=== PATIENT | female | born 1940 | race Caucasian/White ===

== ENCOUNTER 2019-11-30 11:36 | Inpatient (IN) ==
--- NOTE | 2019-11-30 12:00 | Emergency Department Note ---
Neuro HPI - General Chief Complaint: Stroke Symptoms Stated Complaint: stroke symptoms, 90 minutes ago Time Seen by Provider: 11/30/19 11:45 Source: patient, EMS Mode of arrival: EMS Limitations: no limitations - History of Present Illness HPI Narrative: 79-year-old female comes in complaining of trouble speaking starting about 2 hours ago. Perhaps small right-sided facial droop is noted as well. However patient says she is on Eliquis. She is complaining of head Does have a history of prior CVA and cerebral palsy. She has not been able to walk for the last 40 years and is in a electric wheelchair. She has limited sensation and motor ability to her lower extremities at baseline - Related Data Home Medications: Home Medications Medication Instructions Recorded Confirmed albuterol 90 mcg/actuation aerosol See Rx Instructions INHALATION 10/11/16 11/30/19 inhaler .COMPLEX budesonide-formoterol HFA 160 See Rx Instructions INHALATION 10/11/16 11/30/19 mcg-4.5 mcg/actuation aerosol .COMPLEX inhaler felodipine 5 mg tablet,extended 1 tab PO BID 10/11/16 11/30/19 release 24 hr furosemide 20 mg tablet 2 tab PO QAM 10/11/16 11/30/19 hydralazine 100 mg tablet 1 tab PO DAILY 10/11/16 11/30/19 meloxicam 7.5 mg tablet 2 tab PO DAILY 10/11/16 11/30/19 metoprolol tartrate 25 mg tablet 1 tab PO DAILY 10/11/16 11/30/19 omeprazole 20 mg capsule,delayed 1 tab PO BID 10/11/16 11/30/19 release potassium chloride 10 mEq 2 tab PO QAM 10/11/16 11/30/19 tablet,extended release(part/cryst) repaglinide 2 mg tablet See Rx Instructions PO .COMPLEX 10/11/16 11/30/19 Apixaban [Eliquis] 1 tab PO BID 11/30/19 11/30/19 traMADol HCL [Ultram] 50 mg PO Q8 PRN 11/30/19 11/30/19 Allergies/Adverse Reactions: Allergies Allergy/AdvReac Type Severity Reaction Status Date / Time morphine [MORPHINE] Allergy Unknown EMESIS Verified 11/30/19 11:39 Sulfa (Sulfonamide Allergy Unknown HIVES Verified 11/30/19 11:39 Antibiotics) [SULFA (SULFONAMIDE ANTIBIOTICS)] Review of Systems All systems ED: reviewed and negative except as stated. Past Medical History - Past Medical History Attestation: Yes: The following information was validated with the patient. [facility] Narrative: Family History (Last Reviewed 10/30/19 @ 11:02 by Cat Otto CMA) Father Cancer Medical History (Last Reviewed 10/30/19 @ 11:42 by Marcia Maier DO) Mastoiditis (Acute) Long-term current use of steroids (Chronic) Mastoiditis of right side (Suspected) Giant cell arteritis (Ruled-out) Polyarthralgia (Chronic) Vision loss of left eye (Chronic) Rheumatology New Pt. (Acute) Ischemic optic neuropathy (Chronic) Drusen (degenerative) of retina (Chronic) Sector or arcuate defects in visual field (Chronic) Senile nuclear sclerosis (Chronic) Blepharoconjunctivitis, unspecified (Chronic) Subjective visual disturbance, unspecified (Chronic) Carpal tunnel syndrome of left wrist (Chronic) Cerebral palsy (Chronic) Migraine (Chronic) GERD (gastroesophageal reflux disease) (Chronic) Diabetes mellitus, type II (Chronic) Hypertension (Chronic) COPD (chronic obstructive pulmonary disease) (Chronic) Asthma (Chronic) Osteoarthritis (Chronic) Presbyopia (Chronic 10/02/16) Blurry vision (Chronic) Visual field loss (Chronic) Retinal detachment (Chronic) Past Surgical History (Last Reviewed 10/30/19 @ 11:02 by Cat Otto [facility]) History of (Chronic) History of back surgery (Chronic) History of carpal tunnel surgery of left wrist (Chronic) History of tonsillectomy (Chronic) Medical history: Reports: atrial fibrillation, CVA, DM, hypertension, other [employer] history: Reports: non-contributory Surgical history ED: Reports: other (multiple surgeries for cerebral palsy) - Social History smoking status: Never smoker Physical Exam Elderly female is conversant but is having a little trouble word finding. Alert and oriented -short-term memory does appear intact and with time is able to communicate effectively. Perhaps small amount of right facial droop. There is no dysarthria. Conjunctive are clear sclerae white and icteric. Pupils are eq ual round reactive to light and accommodation. Extraocular movements are intact without significant nystagmus. No nasal discharge or congestion. Oropharynx is pink and moist. Tongue is midline. Neck is supple without lymphadenopathy thyromegaly or carotid bruit. Heart is regular rate and rhythm no murmur appreciated. Lungs are clear to auscultation bilaterally without wheezes rales rhonchi or respiratory distress. Abdomen is soft nontender nondistended. No peritoneal signs or guarding. 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 Bilateral feet show baseline sensation and limited movement at baseline. Limitations: no limitations Course Vital Signs Respiratory Rate 26 H 11/30/19 11:59 Blood Pressure 119/51 11/30/19 11:59 Pulse Rate 28 L 11/30/19 12:02 Respiratory Rate 19 11/30/19 13:14 Blood Pressure 140/47 11/30/19 13:14 Pulse Oximetry (%) 98 11/30/19 12:02 Neuro Symptoms/Deficit - Lab Data Lab results reviewed: Yes I reviewed the patient's lab results. Result diagrams: 11/30/19 11:55 11/30/19 11:55 Lab Results 11/30/19 11/30/19 11/30/19 Range/Units 11:55 11:55 11:55 WBC 10.1 (4.50-11.00) K/mcL RBC 4.28 (3.59-5.38) M/mcL Hgb 12.2 (11.2-15.7) g/dL Hct 36.7 (34.1-44.9) % POC Hct 38.0 (36.0-48.0) % MCV 85.7 (80.0-100.0) fL MCH 28.5 (26.0-34.0) pg MCHC 33.2 (31.0-36.0) g/dL RDW 13.2 (11.5-14.5) % Plt Count 268 (140-440) K/mcL MPV 11.2 H (7.4-10.4) fL Gran % 77.1 (38.0-78.0) % Lymph % (Auto) 15.3 L (15.5-49.0) % Spink % (Auto) 5.6 (1.0-12.0) % Eos % (Auto) 1.3 (0.0-7.0) % Baso % (Auto) 0.7 (0.0-2.0) % Gran # 7.79 (1.80-8.00) K/mcL Lymph # (Auto) 1.55 (1.50-4.80) K/mcL Spink # (Auto) 0.57 (0.10-0.90) K/mcL Eos # (Auto) 0.13 (0.00-0.70) K/mcL Baso # (Auto) 0.07 (0.00-0.30) K/mcL POC PT 12.3 (11.9-14.5) sec POC INR 1.0 (0.9-1.2) APTT 38 H (20-37) sec POC Sodium 135 (133-145) mmol/L Sodium 135 (133-145) mmol/L POC Potassium 4.3 (3.3-5.1) mmol/L Potassium 4.4 (3.3-5.1) mmol/L POC Chloride 102 (96-108) mmol/L Chloride 96 (96-108) mmol/L Carbon Dioxide 21 L (22-30) mmol/L POC Total CO2 23 (22-30) mmol/L Anion Gap 18.0 H (8-16) POC BUN 34 H (8-23) mg/dl BUN 36 H (8-23) mg/dl Creatinine 1.9 H (0.6-1.1) mg/dl POC Creatinine 2.1 H (0.6-1.1) mg/dl GFR Calculation 25 Glucose 136 H (70-105) mg/dL POC Glucose 134 H (70-105) mg/dL Calcium 9.8 (8.6-10.4) mg/dl POC WB Ioniz Calcium 1.17 (1.16-1.32) mmol/L Total Bilirubin 1.1 H (0.0-1.0) mg/dL AST 15 (0-37) U/l ALT 8 (0-40) U/l Alkaline Phosphatase 63 (39-117) U/L Troponin T (0-0.03) ng/ml Total Protein 7.1 (5.9-8.4) gm/dL Albumin 4.3 (3.2-5.2) gm/dL Globulin 2.8 (2.2-3.7) gm/dL Albumin/Globulin Ratio 1.5 (1.0-2.3) 11/30/19 Range/Units 11:55 WBC (4.50-11.00) K/mcL RBC (3.59-5.38) M/mcL Hgb (11.2-15.7) g/dL Hct (34.1-44.9) % POC Hct (36.0-48.0) % MCV (80.0-100.0) fL MCH (26.0-34.0) pg MCHC (31.0-36.0) g/dL RDW (11.5-14.5) % Plt Count (140-440) K/mcL MPV (7.4-10.4) fL Gran % (38.0-78.0) % Lymph % (Auto) (15.5-49.0) % Spink % (Auto) (1.0-12.0) % Eos % (Auto) (0.0-7.0) % Baso % (Auto) (0.0-2.0) % Gran # (1.80-8.00) K/mcL Lymph # (Auto) (1.50-4.80) K/mcL Spink # (Auto) (0.10-0.90) K/mcL Eos # (Auto) (0.00-0.70) K/mcL Baso # (Auto) (0.00-0.30) K/mcL POC PT (11.9-14.5) sec POC INR (0.9-1.2) APTT (20-37) sec POC Sodium (133-145) mmol/L Sodium (133-145) mmol/L POC Potassium (3.3-5.1) mmol/L Potassium (3.3-5.1) mmol/L POC Chloride (96-108) mmol/L Chloride (96-108) mmol/L Carbon Dioxide (22-30) mmol/L POC Total CO2 (22-30) mmol/L Anion Gap (8-16) POC BUN (8-23) mg/dl BUN (8-23) mg/dl Creatinine (0.6-1.1) mg/dl POC Creatinine (0.6-1.1) mg/dl GFR Calculation Glucose (70-105) mg/dL POC Glucose (70-105) mg/dL Calcium (8.6-10.4) mg/dl POC WB Ioniz Calcium (1.16-1.32) mmol/L Total Bilirubin (0.0-1.0) mg/dL AST (0-37) U/l ALT (0-40) U/l Alkaline Phosphatase (39-117) U/L Troponin T 0.02 (0-0.03) ng/ml Total Protein (5.9-8.4) gm/dL Albumin (3.2-5.2) gm/dL Globulin (2.2-3.7) gm/dL Albumin/Globulin Ratio (1.0-2.3) - Radiology Data Radiology results reviewed: Yes I reviewed the patient's radiology results. CT scan of the head without contrast shows old CVA from 2 years ago and extensive white matter changes which are chronic. No new stroke seen today MRI of the brain shows new stroke on the opposite side from the previous when she had 2 years ago. I discussed this with Dr. Erik Cordova, radiologist. He felt that this was very peripheral and represented small vessel ischemia-there is no clot and therefore thrombectomy is not an option. - EKG Data EKG attestation: Yes I reviewed and interpreted this EKG., Yes There are no EKG findings of acute coronary syndrome EKG results narrative: EKG shows rate of 95 with atrial fibrillation -there is a single ventricular beat followed by 2 PVCs followed by short pause. When reviewing and comparing to previous EKG on 10/30/2019 longer pauses noted but otherwise similar EKG Disposition Pt seen by GAMBLING MONITOR/PA only: No Clinical Impression: Chronic anticoagulation Acute renal failure Qualifiers: Acute renal failure type: unspecified Qualified Code(s): N17.9 - Acute kidney failure, unspecified CVA (cerebral vascular accident) Qualifiers: CVA mechanism: other Qualified Code(s): I63.89 - Other cerebral infarction Summary: CVA versus weakness from another source such as infection. However as it is only 2 hours we will go ahead and do the stroke protocol with EKG CT scan and laboratory work-up. She is not eligible for TPA at this time as she is on Eliq uis. CT scan did not show evidence of a CVA but did show chronic changes. I discussed the case with Dr. Snider, the tele-stroke doctor. He agreed the patient was not a TPA candidate because she is on Eliquis. Recommended CTA and admission to the hospital for further work-up and monitoring Ordered CTA but we could not do it because her creatinine came back on i-STAT is 2.1 which is an acute change. Her baseline creatinine is about 1.5. Anyways this was changed to MRI stroke protocol MRI showed small stroke on the left which likely accounts for her symptoms. It is likely small vessel ischemia and not thrombosis-not eligible for thrombectomy or TPA We will discuss with hospitalist admission for further work-up and monitoring for the CVA and acute renal failure. Discussed findings with the patient as well and she is agreeable with coming in. I discussed the case with Dr. Lam . He agreed to accept the patient for further care and evaluation in the hospital Disposition: Xfer As Inpt ([facility]) Condition: Serious Referrals: Jeremy Lares MD [Primary Care Provider] -
--- NOTE | 2019-11-30 12:00 | Cat Scan Report ---
History: New stroke symptoms with neurologic deficit TECHNIQUE: The brain was imaged without contrast at 2.5 mm intervals. Sagittal and coronal reformats are created. The radiation exposure was limited using dose reduction technology. FINDINGS: There is severe diffuse white matter disease with confluent areas of decreased attenuation throughout the centrum semiovale in the frontal and parietal lobes bilaterally with milder involvement in the temporal and occipital lobes. There is an old infarct with encephalomalacia lateral to the body of the right lateral ventricle which measures 5 x 8 mm. This was seen acutely on the prior brain MRI done on 04/06/19. No acute infarct is detected. There is no hemorrhage or mass effect. Mild generalized atrophy is present. The ventricles are normal in size. There is no abnormal extra-axial fluid collection. IMPRESSION: Severe diffuse white matter disease above the tentorium which may be due to age-related ischemia or degeneration. Stable old infarct in the right frontoparietal boundary No acute abnormality is identified. Dr. Bass was called with the results Interpreted and Authenticated by: Erik Cordova 11/30/19
[2019-11-30 12:14] LABS: POC Blood Urea Nitrogen 34 mg/dl (8-23); POC CO2 23 mmol/L (22-30); POC Calcium, Ionized 1.17 mmol/L (1.16-1.32); POC Chloride 102 mmol/L (96-108); POC Creatinine 2.1 mg/dl (0.6-1.1); POC Glucose, Random 134 mg/dL (70-105); POC Potassium 4.3 mmol/L (3.3-5.1); POC Pro Time 12.3 sec (11.9-14.5); POC Sodium 135 mmol/L (133-145)
[2019-11-30] MEDS ORDERED: ACETAMINOPHEN 325 MG TABLET PO ONE (12:24)
[2019-11-30 12:46] LABS: Basophils # (Auto) 0.07 K/mcL (0.00-0.30); Basophils % (Auto) 0.7 % (0.0-2.0); Eosinophils # (Auto) 0.13 K/mcL (0.00-0.70); Eosinophils % (Auto) 1.3 % (0.0-7.0); Granulocytes % (Auto) 77.1 % (38.0-78.0); Hematocrit 36.7 % (34.1-44.9); Hemoglobin 12.2 g/dL (11.2-15.7); Lymphocytes # (Auto) 1.55 K/mcL (1.50-4.80); Lymphocytes % (Auto) 15.3 % (15.5-49.0); Mean Cell Volume 85.7 fL (80.0-100.0); Mean Corpuscular HGB Conc 33.2 g/dL (31.0-36.0); Mean Platelet Volume 11.2 fL (7.4-10.4); Monocytes # (Auto) 0.57 K/mcL (0.10-0.90); Monocytes % (Auto) 5.6 % (1.0-12.0); Platelet Count 268 K/mcL (140-440); RBC 4.28 M/mcL (3.59-5.38); Red Cell Distribution Width 13.2 % (11.5-14.5); WBC 10.1 K/mcL (4.50-11.00)
--- NOTE | 2019-11-30 12:58 | Magnetic Resonance Report ---
History: Acute stroke symptoms TECHNIQUE: Sagittal T1 axial T2 FLAIR and axial diffusion and ADC map images were acquired. FINDINGS: There is an acute nonhemorrhagic infarct at the left frontal parietal boundary adjacent to the body left lateral ventricle. It measures 9 x 14 mm in size. It has restricted diffusion. No other acute infarct is present. There is no hemorrhage or mass. There are extensive white matter changes above the tentorium with subtle involvement in the francoise due to ischemia or degeneration. Stable old infarct with encephalomalacia lateral to the body the right lateral ventricle which was seen acutely on the prior MRI done on 04/06/19. Ventricles are normal in size line for mild generalized cerebral atrophy. IMPRESSION: Acute nonhemorrhagic infarct in the left keating radiata at the boundary left frontal and parietal lobes Dr. Bass was called with the results Interpreted and Authenticated by: Erik Cordova 11/30/19
[2019-11-30 13:10] LABS: ALT/SGPT 8 U/l (0-40); AST/SGOT 15 U/l (0-37); Albumin 4.3 gm/dL (3.2-5.2); Albumin/Globulin Ratio 1.5 (1.0-2.3); Alkaline Phosphatase 63 U/L (39-117); Bilirubin,Total 1.1 mg/dL (0.0-1.0); Blood Urea Nitrogen 36 mg/dl (8-23); Calcium 9.8 mg/dl (8.6-10.4); Carbon Dioxide 21 mmol/L (22-30); Chloride 96 mmol/L (96-108); Globulin 2.8 gm/dL (2.2-3.7); Glomerular Filtration Rate 25; Glucose 136 mg/dL (70-105)
--- NOTE | 2019-11-30 14:22 | Internal Med History&Physical ---
Medical - H&P: HPI Patient information: Note initiated : 11/30/19 at 2:18 pm Service Date, if different from initiated Date: [] Patient: Alexandria Yee a 79 y/o F admitted on for stroke symptoms, 90 minutes ago. Chief Complaint: [] History of present illness: Ms. Yee is a 79 year old F Who presents the ED with difficulty in speech. Present felt that she had some droopiness in her face. Woke up feeling fine. This all started around 10 where she felt like she was not speaking clearly. She had good comprehension and she felt like she was using the correct words just that she was finding it more difficult to speak clearly. She has bit of a headache. She has chronic shortness of breath but otherwise no new complaints. She has chronic sensory deficits. She does not note any focal weakness from baseline. He is on anticoagulation for atrial fibrillation. Showing a CT which was unremarkable and subsequently an MRI which revealed a small stroke left hemisphere. The imaging was discussed between the ED and radiologist to felt like it was a small peripheral stroke no thrombus. Case was discussed with stroke neurologist patient not a candidate for TPA. I did discuss the case with the stroke neurologist as well regarding her current anticoagulation and he recommended switching her to another DOAC and if that was not feasible given insurance then to add an aspirin. And aspirin now while holding anticoagulation for several days. She was seen in the ED about a month ago at [facility] and at that time was felt to have some CHF and her Lasix was increased from 20-40. Do not know what her baseline creatinine is but she does have chronic kidney disease. Her creatinine at [facility] a month ago was 2.2. The last labs I have are from 2017 and those creatinine labs range from 1/2-1.7. Current creatinine is 1.9. Review of Systems: Pertinent positives as above. Denies fever/chills/nausea/vomiting/chest or abdominal pain/cough/dyspnea/diarrhea. Remaining 10 point review of system reviewed negative Medical - H&P: PM Medical history: Medical History (Last Reviewed 10/30/19 @ 11:42 by Marcia Maier DO) Mastoiditis (Acute) Long-term current use of steroids (Chronic) Mastoiditis of right side (Suspected) Giant cell arteritis (Ruled-out) Polyarthralgia (Chronic) Vision loss of left eye (Chronic) Rheumatology New Pt. (Acute) Ischemic optic neuropathy (Chronic) Drusen (degenerative) of retina (Chronic) Sector or arcuate defects in visual field (Chronic) Senile nuclear sclerosis (Chronic) Blepharoconjunctivitis, unspecified (Chronic) Subjective visual disturbance, unspecified (Chronic) Carpal tunnel syndrome of left wrist (Chronic) Cerebral palsy (Chronic) Migraine (Chronic) GERD (gastroesophageal reflux disease) (Chronic) Diabetes mellitus, type II (Chronic) Hypertension (Chronic) COPD (chronic obstructive pulmonary disease) (Chronic) Asthma (Chronic) Osteoarthritis (Chronic) Presbyopia (Chronic 10/02/16) Blurry vision (Chronic) Visual field loss (Chronic) Retinal detachment (Chronic) Past Surgical History (Last Reviewed 10/30/19 @ 11:02 by Cat Otto CMA) History of (Chronic) History of back surgery (Chronic) History of carpal tunnel surgery of left wrist (Chronic) History of tonsillectomy (Chronic) Family History (Last Reviewed 10/30/19 @ 11:02 by Cat Otto CMA) Father-leukemia Mother had heart disease Social history: No tobacco or alcohol She has been wheelchair-bound for 40 years. Lives with her . Medical - H&P: Meds Home Medications Medication Instructions Recorded Confirmed Type albuterol 90 mcg/actuation aerosol See Rx Instructions INHALATION 10/11/16 11/30/19 History inhaler .COMPLEX budesonide-formoterol HFA 160 See Rx Instructions INHALATION 10/11/16 11/30/19 History mcg-4.5 mcg/actuation aerosol .COMPLEX inhaler felodipine 5 mg tablet,extended 1 tab PO BID 10/11/16 11/30/19 History release 24 hr furosemide 20 mg tablet 2 tab PO QAM 10/11/16 11/30/19 History hydralazine 100 mg tablet 1 tab PO DAILY 10/11/16 11/30/19 History meloxicam 7.5 mg tablet 2 tab PO DAILY 10/11/16 11/30/19 History metoprolol tartrate 25 mg tablet 1 tab PO DAILY 10/11/16 11/30/19 History omeprazole 20 mg capsule,delayed 1 tab PO BID 10/11/16 11/30/19 History release potassium chloride 10 mEq 2 tab PO QAM 10/11/16 11/30/19 History tablet,extended release(part/cryst) repaglinide 2 mg tablet See Rx Instructions PO .COMPLEX 10/11/16 11/30/19 History Apixaban [Eliquis] 1 tab PO BID 11/30/19 11/30/19 History traMADol HCL [Ultram] 50 mg PO Q8 PRN 11/30/19 11/30/19 History Allergies Allergy/AdvReac Type Severity Reaction Status Date / Time morphine [MORPHINE] Allergy Unknown EMESIS Verified 11/30/19 11:39 Sulfa (Sulfonamide Allergy Unknown HIVES Verified 11/30/19 11:39 Antibiotics) [SULFA (SULFONAMIDE ANTIBIOTICS)] Medical - H&P: Exam - Constitutional Vitals: Pulse Resp BP Pulse Ox 28 L 19 140/47 98 11/30/19 12:02 11/30/19 13:14 11/30/19 13:14 11/30/19 12:02 Exam: General: Alert, Awake, No acute Distress Eyes/N/T: EOMI, PERRL, dry MM Head/Neck: neck supple, normocephalic atraumatic CV: RRR, No murmurs, normal s1/s2 Pulm: Clear b/l, no wheezing/rhonchi/rales Abd: soft, nontender, +BS x4 Ext: no clubbing/cyanosis/edema Neuro: Alert, chronic mild left-sided deficits from previous stroke. Chronic l ower extremity sensory deficits secondary to diabetes. Strength appears nearly symmetrical the left chronically weaker. Possible subtle right facial droop. Speech minimally slurred. Skin: warm/dry Medical - H&P: Reslt - Labs CBC & Chem 7: 11/30/19 11:55 11/30/19 11:55 Labs: Short CBC 11/30/19 Range/Units 11:55 WBC 10.1 (4.50-11.00) K/mcL Hgb 12.2 (11.2-15.7) g/dL Hct 36.7 (34.1-44.9) % Plt Count 268 (140-440) K/mcL BMP 11/30/19 11:55 Sodium 135 Potassium 4.4 Chloride 96 Carbon Dioxide 21 L BUN 36 H Creatinine 1.9 H Glucose 136 H Calcium 9.8 Cardiac Enzymes 11/30/19 Range/Units 11:55 Troponin T 0.02 (0-0.03) ng/ml Liver Function 11/30/19 Range/Units 11:55 Total Bilirubin 1.1 H (0.0-1.0) mg/dL AST 15 (0-37) U/l ALT 8 (0-40) U/l Alkaline Phosphatase 63 (39-117) U/L Albumin 4.3 (3.2-5.2) gm/dL Medical - H&P: A/P - Narrative A/P Narrative: A: *Acute CVA, small, Left keating radiata - with mild dysarthria and facial droop (h/o CVA with left deficits): *AFib: on Eliquis *CKD III-IV: ?baseline, 1.5-2.0 *DM w/neuropathy: *HTN: *Asthma: *GERD: *Cerebral palsy: Wheelchair-bound * P: -IVF's -start ASA for now, start statin -Discussed case with stroke neurologist (Dr. Snider) who recommended switching to another DOAC if insurance allows or just adding aspirin to Eliquis. However, given her degree of CKD we are limited in DOAC options (Edoxaban), other option would be warfarin. -Hold DOAC for 48 to 72 hours, ASA until then -ST -carotid and cardiac us -permissive HTN for 24hrs -pt/ot -ppx: lovenox/home ppi DNR
[2019-11-30] MEDS ORDERED: traMADol 50 MG TABLET PO ONE (14:38)
[2019-11-30] MEDS ORDERED: 0.9 % SODIUM CHLORIDE 1,000 ML IV SCH ×2 (14:45→15:35)
[2019-11-30] MEDS ORDERED: METOPROLOL TARTRATE 5 MG/5 ML VIAL IV PRN (15:35)
[2019-11-30] MEDS ORDERED: ACETAMINOPHEN 325 MG TABLET PO PRN (15:35)
[2019-11-30] MEDS ORDERED: DEXTROSE 50% 50 ML VIAL IV PRN (15:35)
[2019-11-30] MEDS ORDERED: POTASSIUM CHLORIDE 40 MEQ in DEXTROSE 5% IN WATER 500 ML IV PRN (15:35)
[2019-11-30] MEDS ORDERED: ONDANSETRON 4 MG/2 ML VIAL IV PRN (15:35)
[2019-11-30] MEDS ORDERED: DEXTROSE 31 GM ORAL.SUSP PO PRN (15:35)
[2019-11-30] MEDS ORDERED: POTASSIUM CHLORIDE 20 MEQ TABLET PO PRN ×2 (15:35)
[2019-11-30] MEDS ORDERED: LABETALOL 5 MG/ML ML IV PRN ×2 (15:35→18:12)
[2019-11-30] MEDS ORDERED: POLYETHYLENE GLYCOL 3350 17 GM PACKET PO PRN (15:35)
[2019-11-30] MEDS ORDERED: MAGNESIUM SULFATE 2 GM/50 ML BAG IV PRN (15:35)
[2019-11-30] MEDS: 0.9 % SODIUM CHLORIDE 10 ML SYRINGE IV SCH ×2 (15:45→22:18)
[2019-11-30] MEDS: INSULIN LISPRO 1 UNIT/0.01 ML UNIT SQ SCH ×2 (17:38→21:15)
[2019-11-30 17:42] LABS: Appearance,Urine CLEAR; Bacteria,Urine 0 /hpf (0); Bilirubin,Urine NEG (NEG); Color,Urine YELLOW; Culture Indicated,Urine YES; Glucose,Urine (UA) NEGATIVE (NEG); Ketones,Urine NEG (NEG); Leukocyte Esterase,Urine 500 /uL (NEG); Nitrate,Urine NEG (NEG); Protein,Urine NEG (NEG); Specific Gravity,Urine 1.006 (1.000-1.035); Urine Blood NEG mg/dL (<0.03); Urine RBC 2 /hpf (0-1); Urine Squamous Epithelial Cell 0 /hpf (0-4); Urine WBC 10 /hpf (0-4); Urobilinogen,Urine NEG (NEG)
[2019-11-30] MEDS ORDERED: ASPIRIN 81 MG TAB.CHEW CHEWED ONE (18:11)
[2019-11-30] MEDS ORDERED: ASPIRIN 81 MG TAB.CHEW ONE (18:21)
[2019-11-30] MEDS ORDERED: cefTRIAXone 1 GM VIAL ONE (18:21)
[2019-11-30] MEDS: cefTRIAXone 1 GM VIAL IV SCH (18:34)
[2019-11-30] MEDS ORDERED: ATORVASTATIN 40 MG TABLET PO SCH (21:00)
[2019-11-30] MEDS: FAMOTIDINE 20 MG TABLET PO SCH (21:22)
[2019-11-30] MEDS: FELODIPINE XR 5 MG TABLET PO SCH (21:22)
[2019-11-30] MEDS: DOCUSATE SODIUM 100 MG CAPSULE PO SCH (21:22)
[2019-11-30] MEDS: Budesonide/Formoterol Fumarate [Symbicort 160-4.5 MCG] Inhaler INH SCH (21:23)
[2019-11-30] MEDS: traMADol 50 MG TABLET PO PRN (22:12)
[2019-12-01] MEDS: 0.9 % SODIUM CHLORIDE 10 ML SYRINGE IV SCH ×4 (05:32→20:24)
[2019-12-01 06:39] LABS: ALT/SGPT 6 U/l (0-40); AST/SGOT 9 U/l (0-37); Albumin 3.4 gm/dL (3.2-5.2); Alkaline Phosphatase 49 U/L (39-117); Bilirubin,Direct < 0.2 mg/dL (0.0-0.3); Bilirubin,Total 0.6 mg/dL (0.0-1.0); Blood Urea Nitrogen 36 mg/dl (8-23); Carbon Dioxide 24 mmol/L (22-30); Chloride 103 mmol/L (96-108); Glomerular Filtration Rate 25; Glucose 93 mg/dL (70-105); Lactate Dehydrogenase 135 U/L (94-250); Phosphorous 3.6 mg/dL (2.7-4.5); Triglycerides 99 mg/dl (<150); Uric Acid 8.2 mg/dL (2.5-8.0)
[2019-12-01 06:42] LABS: Albumin/Globulin Ratio 1.5 (1.0-2.3); Globulin 2.2 gm/dL (2.2-3.7)
--- NOTE | 2019-12-01 07:51 | Ultrasound Report ---
CLINICAL INFORMATION: Stroke COMPARISON: Carotid MRA on 10/20/16 TECHNIQUE: Carotid arteries were imaged in sagittal and transverse planes using 5 mHz linear probe: Doppler, color, and 2D. FINDINGS: See worksheet by the technologist for velocities in PACS intimal thickening is present in the mid and distal common carotids bilaterally. There is a moderate amount calcified plaque in the right carotid bifurcation. There is a 50-69% stenosis at the origin right external carotid and a less than 50% stenosis at the origin of the internal carotid. Distal to its origin the right internal carotid is normal. A large amount calcified plaque is present in the left carotid bifurcation. This is causing a greater than 70% stenosis in the proximal internal carotid. Mid and distal left internal carotid are normal. A 50-69% stenosis is present at the origin of the left external carotid. Antegrade flow is present in both vertebral arteries. Patient has a cardiac arrhythmia. Comparison with the prior MRA shows the atherosclerosis and stenoses are new. Please correlate with CTA CT Angiography or MRA MR Angiography if surgery is contemplated. IMPRESSION: Greater than 70% stenosis in the proximal left internal carotid. Cardiac arrhythmia Interpreted and Authenticated by: Erik Cordova 12/01/19
[2019-12-01] MEDS: INSULIN LISPRO 1 UNIT/0.01 ML UNIT SQ SCH ×4 (07:55→20:24)
--- NOTE | 2019-12-01 07:58 | Internal Med Progress Note ---
Medical - PN: Subj Patient information: Note initiated : 12/01/19 at 7:51 am Service Date, if different from initiated Date: [] Patient: Alexandria Yee a 79 y/o F admitted on 11/30/19 for stroke symptoms, 90 minutes ago. Chief Complaint: [] Interval history: Ms. Yee is a 79 year old F Who presents the ED with difficulty in speech. Present felt that she had some droopiness in her face. Woke up feeling fine. This all started around 10 where she felt like she was not speaking clearly. She had good comprehension and she felt like she was using the correct words just that she was finding it more difficult to speak clearly. She has bit of a headache. She has chronic shortness of breath but otherwise no new complaints. She has chronic sensory deficits. She does not note any focal weakness from baseline. He is on anticoagulation for atrial fibrillation. Showing a CT which was unremarkable and subsequently an MRI which revealed a small stroke left hemisphere. The imaging was discussed between the ED and radiologist to felt like it was a small peripheral stroke no thrombus. Case was discussed with stroke neurologist patient not a candidate for TPA. I did discuss the case with the stroke neurologist as well regarding her current anticoagulation and he recommended switching her to another DOAC and if that was not feasible given insurance then to add an aspirin. And aspirin now while holding anticoagulation for several days. She was seen in the ED about a month ago at [facility] and at that time was felt to have some CHF and her Lasix was increased from 20-40. Do not know what her baseline creatinine is but she does have chronic kidney disease. Her creatinine at [facility] a month ago was 2.2. The last labs I have are from 2017 and those creatinine labs range from 1/2-1.7. Current creatinine is 1.9. 5/5 No overnight events. Feels her speech is better. However this morning she was eating her breakfast on a dysphagia diet mildly thickened liquids when she drank her thickened coffee she seemed to choke on it. Currently n.p.o. and waiting for speech therapy evaluation. Ultrasound with left carotid artery stenosis 75%. Will talk to Dr. Wagner. Review of Systems: denies headache/fever/chills/nausea/vomiting/chest or abdominal pain/cough/dyspnea/diarrhea. Otherwise see above. - Constitutional Vitals: Vital Signs Temp Pulse Resp BP Pulse Ox 97.6 F 65 20 164/72 95 12/01/19 04:05 11/30/19 21:02 12/01/19 04:05 12/01/19 04:05 12/01/19 04:05 Period Temp Pulse Resp BP Sys/Cole Pulse Ox Last 24 Hr 97.2 F-98.2 F 28-131 12-95 119-191/40-138 95-98 Intake and Output 11/30/19 12/01/19 12/01/19 21:59 05:59 13:59 Intake Total 1000 240 Output Total 1 3 Balance 999 237 Weight 61.008 kg Intake & Output: Intake & Output 11/30/19 12/01/19 12/01/19 21:59 05:59 13:59 Intake Total 1000 240 Output Total 1 3 Balance 999 237 Weight 61.008 kg Intake: IV 1000 Sodium Chloride 0.9% 1,000 ml @ 1000 500 mls/hr IV .Q2H [facility] Rx#: [id number] Oral 240 Output: Void Amount 0 # of times incontinent of urine 1 3 Other: Urine Appearance Clear Urine Color Pale Urine Odor Normal Exam: General: Alert, Awake, No acute Distress Eyes/N/T: EOMI, Head/Neck: neck supple, CV: RRR, No murmurs, Pulm: Clear b/l, no wheezing/rhonchi/rales Abd: soft, nontender, +BS x4 Ext: no clubbing/cyanosis/edema Neuro: Alert, chronic mild left-sided deficits from previous stroke. Chronic lower extremity sensory deficits secondary to diabetes. subtle right facial droop. Speech clear. Skin: warm/dry Medical - PN: Obj Da - Labs CBC & Chem 7: 11/30/19 11:55 12/01/19 05:13 Labs: Abnormal Lab Results 12/01/19 11/30/19 11/30/19 05:13 16:46 11:55 MPV Lymph % (Auto) APTT Carbon Dioxide 21 L Anion Gap 18.0 H POC BUN 34 H BUN 36 H 36 H Creatinine 1.9 H 1.9 H POC Creatinine 2.1 H Glucose 136 H POC Glucose 134 H Uric Acid 8.2 H Total Bilirubin 1.1 H Total Protein 5.6 L Ur Leukocyte Esterase 500 A Urine RBC 2 H Urine WBC 10 H 11/30/19 11/30/19 11:55 11:55 MPV 11.2 H Lymph % (Auto) 15.3 L APTT 38 H Carbon Dioxide Anion Gap POC BUN BUN Creatinine POC Creatinine Glucose POC Glucose Uric Acid Total Bilirubin Total Protein Ur Leukocyte Esterase Urine RBC Urine WBC Meds: Medications Acetaminophen (Tylenol) 650 mg PO Q6HP PRN PRN Reason: PAIN/FEVER > 101 Albuterol/Ipratropium (Duoneb) 3 ml NEB Q4HP PRN PRN Reason: Shortness Of Breath Atorvastatin Calcium (Lipitor) 40 mg PO [facility] Last Admin: 11/30/19 21:22 Dose: 40 mg Documented by: Ceftriaxone Sodium (Rocephin) 1 gm IV Q24H [facility]; Protocol Last Admin: 11/30/19 18:34 Dose: Not Given Documented by: Dextrose (Dextrose 50%) 0 ml IV UD PRN PRN Reason: Hypoglycemia Diagnostic Test (Pha) (Accu-Chek) 1 each FS [facility] Last Admin: 11/30/19 21:14 Dose: 1 each Documented by: Docusate Sodium (Colace) 100 mg PO BID [facility] Last Admin: 11/30/19 21:22 Dose: 100 mg Documented by: Enoxaparin Sodium (Lovenox) 30 mg SQ DAILY [facility] Famotidine (Pepcid) 20 mg PO [facility] Last Admin: 11/30/19 21:22 Dose: 20 mg Documented by: Felodipine (Plendil Xr) 5 mg PO BID [facility] Last Admin: 11/30/19 21:22 Dose: 5 mg Documented by: Glucose (Insta-Glucose) 15 gm PO PRN PRN PRN Reason: Hypoglycemia Potassium Chloride 40 meq/ (Dextrose) 520 mls @ 130 mls/hr IV UD PRN PRN Reason: Potassium < 3 Magnesium Sulfate (Magnesium Sulfate) 2 gm in 50 mls @ 50 mls/hr IV UD PRN PRN Reason: Magnesium </= 1.6 Insulin Human Lispro (Humalog) 0 unit SQ [facility]; Protocol Last Admin: 11/30/19 21:15 Dose: Not Given Documented by: Labetalol HCl (Trandate) 10 mg IV Q4HP PRN PRN Reason: sbp>190 Metoprolol Tartrate (Lopressor) 25 mg PO DAILY [facility] Metoprolol Tartrate (Lopressor) 5 mg IV Q2HP PRN PRN Reason: Tachyarrhythmias HR>110 Ondansetron HCl (Zofran) 4 mg IV Q4HP PRN PRN Reason: Nausea And Vomiting Budesonide/Formoterol Fumarate [Symbicort 160-4.5 Mcg] Inhaler 1 dose INH BID [facility] Last Admin: 11/30/19 21:23 Dose: Not Given Documented by: Polyethylene Glycol (Miralax) 17 gm PO DAILYP PRN PRN Reason: Constipation Potassium Chloride (Kdur) 40 meq PO UD PRN PRN Reason: Potssium is 3-3.5 Potassium Chloride (Kdur) 40 meq PO UD PRN PRN Reason: Potassium < 3 Senna (Senokot) 2 tab PO DAILYP PRN PRN Reason: Constipation Sodium Chloride (Saline Flush) 10 ml IV Q8 [facility] Last Admin: 12/01/19 05:32 Dose: Not Given Documented by: Tramadol HCl (Ultram) 50 mg PO Q8HP PRN PRN Reason: Pain Last Admin: 11/30/19 22:12 Dose: 50 mg Documented by: Medical - PN: A/P - Time Spent With Patient Total time spent is greater than 50% in coordination of care (as documented) at patient's floor/unit and/or counseling patient: - Narrative A/P Narrative: A: *Acute CVA, small, Left keating radiata - with mild dysarthria improved and right facial droop (h/o CVA with left deficits): -carotid us >70% in left artery *AFib: on Eliquis *CKD III-IV: baseline, 1.5-2.0 *DM w/neuropathy: *HTN: *Asthma: *GERD: *Cerebral palsy: Wheelchair-bound * P: -IVF's -ASA for now, started statin -Discussed case with stroke neurologist (Dr. Snider) who recommended switching to another DOAC if insurance allows or just adding aspirin to Eliquis. However, given her degree of CKD we are limited in DOAC options (Edoxaban), other option would be warfarin. *Given the stenosis, will add antiplatelet. -Hold DOAC for 48 to 72 hours, ASA until then -ST -echo pending -Refer to Dr. Wagner -permissive HTN for 24-48hrs -pt/ot -ppx: lovenox/home ppi DNR Medical - PN: Qual - Stroke Onset of Symptoms Date: 11/30/19 Onset of Symptoms Time: 10:00 Symptom Onset Unknown: No - VTE Deep Vein Thrombosis/Pulmonary Embolism Present on Admission: No
[2019-12-01] MEDS ORDERED: 0.9 % SODIUM CHLORIDE 500 ML IV SCH (08:00)
[2019-12-01] MEDS: ASPIRIN 81 MG TAB.CHEW PO SCH (08:20)
[2019-12-01] MEDS: ENOXAPARIN 30 MG/0.3 ML SYRINGE SQ SCH (09:25)
[2019-12-01] MEDS: FELODIPINE XR 5 MG TABLET PO SCH (09:26)
[2019-12-01] MEDS: METOPROLOL TARTRATE 25 MG TABLET PO SCH (09:26)
[2019-12-01] MEDS: DOCUSATE SODIUM 100 MG CAPSULE PO SCH ×2 (09:26→20:23)
[2019-12-01] MEDS: cefTRIAXone 1 GM VIAL IV SCH (09:41)
[2019-12-01 09:42] LABS: HDL Cholesterol 43 mg/dl (>40); LDL Cholesterol,Calculated 61 mg/dl (SEE CHART); Non-HDL Cholesterol 80 (LDL TARGET+30); Triglycerides 97 mg/dl (<150)
[2019-12-01] MEDS: Budesonide/Formoterol Fumarate [Symbicort 160-4.5 MCG] Inhaler INH SCH ×2 (09:43→20:28)
[2019-12-01] MEDS: IPRATROPIUM/ALBUTEROL 3 ML AMPUL.NEB NEB PRN (17:21)
[2019-12-01] MEDS: traMADol 50 MG TABLET PO PRN (20:23)
[2019-12-01] MEDS: FAMOTIDINE 20 MG TABLET PO SCH (20:24)
[2019-12-01] MEDS: ATORVASTATIN 40 MG TABLET PO SCH (20:24)
[2019-12-02] MEDS: 0.9 % SODIUM CHLORIDE 10 ML SYRINGE IV SCH ×3 (05:30→21:57)
[2019-12-02 06:42] LABS: ALT/SGPT 8 U/l (0-40); AST/SGOT 12 U/l (0-37); Albumin 3.7 gm/dL (3.2-5.2); Albumin/Globulin Ratio 1.8 (1.0-2.3); Alkaline Phosphatase 49 U/L (39-117); Bilirubin,Direct < 0.2 mg/dL (0.0-0.3); Bilirubin,Total 0.6 mg/dL (0.0-1.0); Blood Urea Nitrogen 31 mg/dl (8-23); Carbon Dioxide 23 mmol/L (22-30); Chloride 105 mmol/L (96-108); Globulin 2.1 gm/dL (2.2-3.7); Glomerular Filtration Rate 26; Glucose 91 mg/dL (70-105); Lactate Dehydrogenase 150 U/L (94-250); Phosphorous 3.5 mg/dL (2.7-4.5); Triglycerides 93 mg/dl (<150); Uric Acid 7.6 mg/dL (2.5-8.0)
--- NOTE | 2019-12-02 08:01 | Internal Med Progress Note ---
Medical - PN: Subj Patient information: Note initiated : 12/02/19 at 7:54 am Service Date, if different from initiated Date: [] Patient: Alexandria Yee a 79 y/o F admitted on 11/30/19 for stroke symptoms, 90 minutes ago. Chief Complaint: [] Interval history: Ms. Yee is a 79 year old F Who presents the ED with difficulty in speech. Present felt that she had some droopiness in her face. Woke up feeling fine. This all started around 10 where she felt like she was not speaking clearly. She had good comprehension and she felt like she was using the correct words just that she was finding it more difficult to speak clearly. She has bit of a headache. She has chronic shortness of breath but otherwise no new complaints. She has chronic sensory deficits. She does not note any focal weakness from baseline. He is on anticoagulation for atrial fibrillation. Showing a CT which was unremarkable and subsequently an MRI which revealed a small stroke left hemisphere. The imaging was discussed between the ED and radiologist to felt like it was a small peripheral stroke no thrombus. Case was discussed with stroke neurologist patient not a candidate for TPA. I did discuss the case with the stroke neurologist as well regarding her current anticoagulation and he recommended switching her to another DOAC and if that was not feasible given insurance then to add an aspirin. And aspirin now while holding anticoagulation for several days. She was seen in the ED about a month ago at [facility] and at that time was felt to have some CHF and her Lasix was increased from 20-40. Do not know what her baseline creatinine is but she does have chronic kidney disease. Her creatinine at [facility] a month ago was 2.2. The last labs I have are from 2017 and those creatinine labs range from 1/2-1.7. Current creatinine is 1.9. 11/30 No overnight events. Feels her speech is better. However this morning she was eating her breakfast on a dysphagia diet mildly thickened liquids when she drank her thickened coffee she seemed to choke a little on it. Currently n.p.o. and waiting for speech therapy evaluation. Ultrasound with left carotid artery stenosis 75%. Will talk to Dr. Wagner. *Seen by speech therapy and dysphagia diet modified. 5/6 Slept well. Has some coughing this morning and little shortness of breath. no other complaints. Will obtain chest x-ray. Review of Systems: denies headache/fever/chills/nausea/vomiting/chest or abdominal pain/cough/dyspnea/diarrhea. Otherwise see above. - Constitutional Vitals: Vital Signs Temp Pulse Resp BP Pulse Ox 97.9 F 65 16 176/90 96 12/02/19 04:14 12/01/19 17:15 12/02/19 04:14 12/02/19 04:14 12/02/19 04:14 Period Temp Pulse Resp BP Sys/Cole Pulse Ox Last 24 Hr 97.3 F-98.4 F 35-65 16-20 142-191/42-90 92-97 Intake and Output 12/01/19 12/02/19 12/02/19 21:59 05:59 13:59 Intake Total 740 Output Total 2 1 Balance 738 -1 Weight 61.235 kg Intake & Output: Intake & Output 12/01/19 12/02/19 12/02/19 21:59 05:59 13:59 Intake Total 740 Output Total 2 1 Balance 738 -1 Weight 61.235 kg Intake: IV 500 Sodium Chloride 0.9% 500 ml @ 500 84 mls/hr IV .Q5H58M [facility] Rx#: [id number] Oral 240 Output: # of times incontinent of urine 2 1 Exam: General: Alert, Awake, No acute Distress Eyes/N/T: EOMI, Head/Neck: neck supple, CV: RRR, No murmurs, Pulm: diminihed at bases and mild b/l rales, no wheezing Abd: soft, nontender, +BS x4 Ext: no clubbing/cyanosis, trace-mild b/l LE edema Neuro: Alert, chronic mild left-sided deficits from previous stroke. Chronic lower extremity sensory deficits secondary to diabetes. subtle right facial droop. Speech clear. Skin: warm/dry Medical - PN: Obj Da - Labs CBC & Chem 7: 11/30/19 11:55 12/02/19 04:25 Labs: Abnormal Lab Results 12/02/19 12/01/19 11/30/19 04:25 05:13 16:46 MPV Lymph % (Auto) APTT Carbon Dioxide Anion Gap POC BUN BUN 31 H 36 H Creatinine 1.8 H 1.9 H POC Creatinine Glucose POC Glucose Uric Acid 8.2 H Total Bilirubin Total Protein 5.8 L 5.6 L Globulin 2.1 L Ur Leukocyte Esterase 500 A Urine RBC 2 H Urine WBC 10 H 11/30/19 11/30/19 11/30/19 11:55 11:55 11:55 MPV 11.2 H Lymph % (Auto) 15.3 L APTT 38 H Carbon Dioxide 21 L Anion Gap 18.0 H POC BUN 34 H BUN 36 H Creatinine 1.9 H POC Creatinine 2.1 H Glucose 136 H POC Glucose 134 H Uric Acid Total Bilirubin 1.1 H Total Protein Globulin Ur Leukocyte Esterase Urine RBC Urine WBC Meds: Medications Acetaminophen (Tylenol) 650 mg PO Q6HP PRN PRN Reason: PAIN/FEVER > 101 Albuterol/Ipratropium (Duoneb) 3 ml NEB Q4HP PRN PRN Reason: Shortness Of Breath Last Admin: 12/01/19 17:21 Dose: 3 ml Documented by: Aspirin (Aspirin) 81 mg PO DAILY [facility] Last Admin: 12/01/19 08:20 Dose: 81 mg Documented by: Atorvastatin Calcium (Lipitor) 80 mg PO [facility] Last Admin: 12/01/19 20:24 Dose: 80 mg Documented by: Ceftriaxone Sodium (Rocephin) 1 gm IV Q24H [facility]; Protocol Last Admin: 12/01/19 09:41 Dose: 1 gm Documented by: Dextrose (Dextrose 50%) 0 ml IV UD PRN PRN Reason: Hypoglycemia Diagnostic Test (Pha) (Accu-Chek) 1 each FS [facility] Last Admin: 12/01/19 20:23 Dose: 1 each Documented by: Docusate Sodium (Colace) 100 mg PO BID [facility] Last Admin: 12/01/19 20:23 Dose: 100 mg Documented by: Enoxaparin Sodium (Lovenox) 30 mg SQ DAILY [facility] Last Admin: 12/01/19 09:25 Dose: 30 mg Documented by: Famotidine (Pepcid) 20 mg PO [facility] Last Admin: 12/01/19 20:24 Dose: 20 mg Documented by: Glucose (Insta-Glucose) 15 gm PO PRN PRN PRN Reason: Hypoglycemia Potassium Chloride 40 meq/ (Dextrose) 520 mls @ 130 mls/hr IV UD PRN PRN Reason: Potassium < 3 Magnesium Sulfate (Magnesium Sulfate) 2 gm in 50 mls @ 50 mls/hr IV UD PRN PRN Reason: Magnesium </= 1.6 Insulin Human Lispro (Humalog) 0 unit SQ [facility]; Protocol Last Admin: 12/01/19 20:24 Dose: Not Given Documented by: Labetalol HCl (Trandate) 10 mg IV Q4HP PRN PRN Reason: sbp>190 Metoprolol Tartrate (Lopressor) 25 mg PO DAILY [facility] Last Admin: 12/01/19 09:26 Dose: 25 mg Documented by: Metoprolol Tartrate (Lopressor) 5 mg IV Q2HP PRN PRN Reason: Tachyarrhythmias HR>110 Ondansetron HCl (Zofran) 4 mg IV Q4HP PRN PRN Reason: Nausea And Vomiting Budesonide/Formoterol Fumarate [Symbicort 160-4.5 Mcg] Inhaler 1 dose INH BID [facility] Last Admin: 12/01/19 20:28 Dose: 1 dose Documented by: Polyethylene Glycol (Miralax) 17 gm PO DAILYP PRN PRN Reason: Constipation Potassium Chloride (Kdur) 40 meq PO UD PRN PRN Reason: Potssium is 3-3.5 Potassium Chloride (Kdur) 40 meq PO UD PRN PRN Reason: Potassium < 3 Senna (Senokot) 2 tab PO DAILYP PRN PRN Reason: Constipation Sodium Chloride (Saline Flush) 10 ml IV Q8 [facility] Last Admin: 12/02/19 05:30 Dose: 10 ml Documented by: Tramadol HCl (Ultram) 50 mg PO Q8HP PRN PRN Reason: Pain Last Admin: 12/01/19 20:23 Dose: 50 mg Documented by: Medical - PN: A/P - Time Spent With Patient Total time spent is greater than 50% in coordination of care (as documented) at patient's floor/unit and/or counseling patient: - Narrative A/P Narrative: A: *Acute CVA, small, Left keating radiata - with mild dysarthria improved and right facial droop (h/o CVA with left deficits): -carotid us >70% in left artery -echo no thrombus, hyperdynamic *Moderate Oropharyngeal Dysphagia: *AFib: on Eliquis *CKD III-IV: baseline ~1.5-2.0 *DM w/neuropathy: *HTN: *Asthma: *GERD: *Cerebral palsy: Wheelchair-bound *UTI (klebsiella) *cough: from ?aspiration vs ?fluid overload P: -ASA started, started statin -Discussed case with stroke neurologist (Dr. Snider) who recommended switching to another DOAC if insurance allows or just adding aspirin to Eliquis. However, given her degree of CKD we are limited in DOAC options (Edoxaban), other option would be warfarin. *Given the stenosis, will add antiplatelet. -Discussed case with Dr. Wagner who would likely stent the left carotid in 4 to 6 weeks after she has recovered. We will continue the patient on Eliquis and have Aspirin added. -Hold DOAC for 48 to 72 hours, ASA until then -permissive HTN for 24-48hrs -add back in home felodipine, cont Lopressor, restart hydralazine gradually -CXR pending -diet per ST -prn IH's -Rocephin pending UC -pt/ot -ppx: stop lovenox today and start eliquis in morning/home ppi Medical - PN: Qual - Stroke Onset of Symptoms Date: 11/30/19 Onset of Symptoms Time: 10:00 Symptom Onset Unknown: No - VTE Deep Vein Thrombosis/Pulmonary Embolism Present on Admission: No
[2019-12-02] MEDS: INSULIN LISPRO 1 UNIT/0.01 ML UNIT SQ SCH ×4 (08:15→20:45)
[2019-12-02] MEDS: LABETALOL 5 MG/ML ML IV PRN ×2 (08:16→22:08)
[2019-12-02] MEDS: Budesonide/Formoterol Fumarate [Symbicort 160-4.5 MCG] Inhaler INH SCH ×2 (08:54→20:45)
[2019-12-02] MEDS: SENNOSIDES 1 TABLET PO PRN ×2 (08:55→20:34)
[2019-12-02] MEDS: DOCUSATE SODIUM 100 MG CAPSULE PO SCH ×2 (08:55→20:34)
[2019-12-02] MEDS: METOPROLOL TARTRATE 25 MG TABLET PO SCH (08:55)
[2019-12-02] MEDS: FELODIPINE XR 5 MG TABLET PO SCH ×2 (08:55→20:49)
[2019-12-02] MEDS: ASPIRIN 81 MG TAB.CHEW PO SCH (08:56)
[2019-12-02] MEDS: ENOXAPARIN 30 MG/0.3 ML SYRINGE SQ SCH (08:56)
[2019-12-02] MEDS: cefTRIAXone 1 GM VIAL IV SCH (09:02)
--- NOTE | 2019-12-02 09:39 | XRay Report ---
HISTORY: Short of breath and wet sounding cough FINDINGS: There is a subtle alveolar infiltrate in the left lower lobe extending up to the left hilum. This is new since 10/20/16. The right lung is clear. The heart size is upper limits of normal but magnified. The aorta is very tortuous. No pleural effusion is present. There are metal clips in left side of the lower cervical spine which are probably used for fusion. IMPRESSION: Mild left lower lobe pneumonia Interpreted and Authenticated by: Erik Cordova 12/02/19
[2019-12-02] MEDS ORDERED: MAGNESIUM SULFATE 2 GM/50 ML BAG IV ONE (11:54)
[2019-12-02] MEDS: IPRATROPIUM/ALBUTEROL 3 ML AMPUL.NEB NEB PRN (17:13)
[2019-12-02] MEDS ORDERED: NITROGLYCERIN 0.4 MG TAB.SUBL SL PRN (18:49)
[2019-12-02] MEDS ORDERED: ASPIRIN 81 MG TAB.CHEW CHEWED ONE (18:49)
[2019-12-02] MEDS ORDERED: hydrALAZINE 20 MG/ML VIAL IV PRN (18:59)
[2019-12-02] MEDS ORDERED: hydrALAZINE 20 MG/ML VIAL ONE (19:16)
[2019-12-02] MEDS: CLINDAMYCIN 600 MG in DEXTROSE 5% IN WATER 50 ML IV SCH (19:22)
[2019-12-02] MEDS: amLODIPine 5 MG TABLET PO SCH (19:23)
[2019-12-02 19:44] LABS: Basophils # (Auto) 0.08 K/mcL (0.00-0.30); Basophils % (Auto) 0.8 % (0.0-2.0); Eosinophils # (Auto) 0.27 K/mcL (0.00-0.70); Eosinophils % (Auto) 2.6 % (0.0-7.0); Granulocytes % (Auto) 73.8 % (38.0-78.0); Hematocrit 31.9 % (34.1-44.9); Hemoglobin 10.5 g/dL (11.2-15.7); Lymphocytes # (Auto) 1.64 K/mcL (1.50-4.80); Mean Cell Volume 86.9 fL (80.0-100.0); Mean Corpuscular HGB Conc 32.9 g/dL (31.0-36.0); Mean Platelet Volume 11.1 fL (7.4-10.4); Monocytes % (Auto) 6.8 % (1.0-12.0); Platelet Count 187 K/mcL (140-440); RBC 3.67 M/mcL (3.59-5.38); Red Cell Distribution Width 13.2 % (11.5-14.5); WBC 10.2 K/mcL (4.50-11.00)
[2019-12-02 19:58] LABS: Creatine Kinase MB 2.2 ng/ml (0-2.9)
[2019-12-02 20:01] LABS: ALT/SGPT 11 U/l (0-40); AST/SGOT 20 U/l (0-37); Albumin 3.9 gm/dL (3.2-5.2); Albumin/Globulin Ratio 1.5 (1.0-2.3); Alkaline Phosphatase 59 U/L (39-117); Bilirubin,Total 0.6 mg/dL (0.0-1.0); Blood Urea Nitrogen 27 mg/dl (8-23); Calcium 9.3 mg/dl (8.6-10.4); Carbon Dioxide 21 mmol/L (22-30); Chloride 100 mmol/L (96-108); Creatine Kinase 96 IU/L (24-170); Globulin 2.6 gm/dL (2.2-3.7); Glomerular Filtration Rate 26; Glucose 167 mg/dL (70-105)
[2019-12-02] MEDS: traMADol 50 MG TABLET PO PRN (20:34)
[2019-12-02] MEDS: FAMOTIDINE 20 MG TABLET PO SCH (20:34)
[2019-12-02] MEDS: ATORVASTATIN 40 MG TABLET PO SCH (20:35)
[2019-12-02] MEDS ORDERED: PANTOPRAZOLE 40 MG TABLET PO SCH (21:00)
[2019-12-03] MEDS ORDERED: DEXTROSE 10 % IN WATER 1,000 ML IV SCH (04:30)
[2019-12-03] MEDS ORDERED: GLUCAGON,HUMAN RECOMBINANT 1 MG VIAL SQ ONE (04:30)
[2019-12-03] MEDS ORDERED: GLUCAGON,HUMAN RECOMBINANT 1 MG VIAL IV ONE (04:33)
[2019-12-03] MEDS ORDERED: CLINDAMYCIN 600 MG/4 ML VIAL ONE (04:59)
[2019-12-03] MEDS: CLINDAMYCIN 600 MG in DEXTROSE 5% IN WATER 50 ML IV SCH ×3 (05:08→21:44)
[2019-12-03] MEDS: 0.9 % SODIUM CHLORIDE 10 ML SYRINGE IV SCH ×3 (05:38→21:44)
[2019-12-03 06:34] LABS: Basophils # (Auto) 0.08 K/mcL (0.00-0.30); Basophils % (Auto) 0.9 % (0.0-2.0); Eosinophils # (Auto) 0.11 K/mcL (0.00-0.70); Eosinophils % (Auto) 1.2 % (0.0-7.0); Granulocytes % (Auto) 68.2 % (38.0-78.0); Hematocrit 28.2 % (34.1-44.9); Hemoglobin 9.1 g/dL (11.2-15.7); Lymphocytes # (Auto) 1.88 K/mcL (1.50-4.80); Lymphocytes % (Auto) 20.2 % (15.5-49.0); Mean Cell Volume 87.9 fL (80.0-100.0); Mean Corpuscular HGB Conc 32.3 g/dL (31.0-36.0); Mean Platelet Volume 11.4 fL (7.4-10.4); Monocytes # (Auto) 0.88 K/mcL (0.10-0.90); Monocytes % (Auto) 9.5 % (1.0-12.0); Platelet Count 171 K/mcL (140-440); RBC 3.21 M/mcL (3.59-5.38); Red Cell Distribution Width 13.3 % (11.5-14.5); WBC 9.3 K/mcL (4.50-11.00)
[2019-12-03 07:08] LABS: ALT/SGPT 12 U/l (0-40); AST/SGOT 17 U/l (0-37); Albumin 3.4 gm/dL (3.2-5.2); Albumin/Globulin Ratio 1.5 (1.0-2.3); Alkaline Phosphatase 50 U/L (39-117); Blood Urea Nitrogen 25 mg/dl (8-23); Calcium 9.3 mg/dl (8.6-10.4); Carbon Dioxide 24 mmol/L (22-30); Chloride 103 mmol/L (96-108); Globulin 2.2 gm/dL (2.2-3.7); Glomerular Filtration Rate 26; Glucose 117 mg/dL (70-105)
[2019-12-03] MEDS: INSULIN LISPRO 1 UNIT/0.01 ML UNIT SQ SCH ×4 (08:12→19:56)
[2019-12-03] MEDS ORDERED: APIXABAN 5 MG TABLET PO SCH ×2 (09:00→21:00)
[2019-12-03] MEDS: amLODIPine 5 MG TABLET PO SCH (10:08)
[2019-12-03] MEDS: Budesonide/Formoterol Fumarate [Symbicort 160-4.5 MCG] Inhaler INH SCH ×2 (10:08→20:14)
[2019-12-03] MEDS: DOCUSATE SODIUM 100 MG CAPSULE PO SCH ×2 (10:08→19:41)
[2019-12-03] MEDS: FELODIPINE XR 5 MG TABLET PO SCH ×2 (10:08→20:14)
[2019-12-03] MEDS: METOPROLOL TARTRATE 25 MG TABLET PO SCH (10:08)
[2019-12-03] MEDS: ASPIRIN 81 MG TAB.CHEW PO SCH (10:09)
[2019-12-03] MEDS: cefTRIAXone 1 GM VIAL IV SCH (10:16)
[2019-12-03] MEDS ORDERED: IPRATROPIUM/ALBUTEROL 3 ML AMPUL.NEB NEB PRN (10:17)
[2019-12-03] MEDS ORDERED: METOPROLOL TARTRATE 5 MG/5 ML VIAL IV PRN (10:17)
[2019-12-03] MEDS ORDERED: traMADol 50 MG TABLET PO PRN (10:17)
[2019-12-03] MEDS ORDERED: SENNOSIDES 1 TABLET PO PRN (10:17)
[2019-12-03] MEDS ORDERED: POTASSIUM CHLORIDE 20 MEQ TABLET PO PRN ×2 (10:17)
[2019-12-03] MEDS ORDERED: LABETALOL 5 MG/ML ML IV PRN (10:17)
[2019-12-03] MEDS ORDERED: POLYETHYLENE GLYCOL 3350 17 GM PACKET PO PRN (10:17)
[2019-12-03] MEDS ORDERED: MAGNESIUM SULFATE 2 GM/50 ML BAG IV PRN (10:17)
[2019-12-03] MEDS ORDERED: ONDANSETRON 4 MG/2 ML VIAL IV PRN (10:17)
[2019-12-03] MEDS ORDERED: DEXTROSE 50% 50 ML VIAL IV PRN (10:17)
[2019-12-03] MEDS ORDERED: NITROGLYCERIN 0.4 MG TAB.SUBL SL PRN (10:17)
[2019-12-03] MEDS ORDERED: POTASSIUM CHLORIDE 40 MEQ in DEXTROSE 5% IN WATER 500 ML IV PRN (10:17)
[2019-12-03] MEDS ORDERED: DEXTROSE 31 GM ORAL.SUSP PO PRN (10:17)
[2019-12-03] MEDS: hydrALAZINE 20 MG/ML VIAL IV PRN (14:04)
[2019-12-03] MEDS: CALCIUM CARBONATE 500 MG TAB.CHEW CHEWED SCH ×2 (15:03→17:42)
--- NOTE | 2019-12-03 15:03 | Internal Med Progress Note ---
Medical - PN: Subj Patient information: Note initiated : 12/03/19 at 2:54 pm Service Date, if different from initiated Date: [] Patient: Alexandria Yee a 79 y/o F admitted on 11/30/19 for stroke symptoms, 90 minutes ago. Chief Complaint: [] Interval history: Ms. Yee is a 79 year old F Who presents the ED with difficulty in speech. Present felt that she had some droopiness in her face. Woke up feeling fine. This all started around 10 where she felt like she was not speaking clearly. She had good comprehension and she felt like she was using the correct words just that she was finding it more difficult to speak clearly. She has bit of a headache. She has chronic shortness of breath but otherwise no new complaints. She has chronic sensory deficits. She does not note any focal weakness from baseline. He is on anticoagulation for atrial fibrillation. Showing a CT which was unremarkable and subsequently an MRI which revealed a small stroke left hemisphere. The imaging was discussed between the ED and radiologist to felt like it was a small peripheral stroke no thrombus. Case was discussed with stroke neurologist patient not a candidate for TPA. I did discuss the case with the stroke neurologist as well regarding her current anticoagulation and he recommended switching her to another DOAC and if that was not feasible given insurance then to add an aspirin. And aspirin now while holding anticoagulation for several days. She was seen in the ED about a month ago at [facility] and at that time was felt to have some CHF and her Lasix was increased from 20-40. Do not know what her baseline creatinine is but she does have chronic kidney disease. Her creatinine at [facility] a month ago was 2.2. The last labs I have are from 2017 and those creatinine labs range from 1/2-1.7. Current creatinine is 1.9. 11/30 No overnight events. Feels her speech is better. However this morning she was eating her breakfast on a dysphagia diet mildly thickened liquids when she drank her thickened coffee she seemed to choke a little on it. Currently n.p.o. and waiting for speech therapy evaluation. Ultrasound with left carotid artery stenosis 75%. Will talk to Dr. Wagner. *Seen by speech therapy and dysphagia diet modified. 12/01 Slept well. Has some coughing this morning and little shortness of breath. no other complaints. Will obtain chest x-ray. 12/02 Patient does not have any new complaints. Blood pressure is not controlled. Restarted home meds hydralazine. Added amlodipine 5 mg daily Heme hemoglobin went down to 9.1 Creatinine 1.8 Review of Systems: denies headache/fever/chills/nausea/vomiting/chest or abdominal pain/cough/dyspnea/diarrhea. Otherwise see above. - Constitutional Vitals: Vital Signs Temp Pulse Resp BP Pulse Ox 97.8 F 70 22 178/52 95 12/03/19 12:03 12/03/19 10:01 12/03/19 12:03 12/03/19 12:03 12/03/19 12:03 Period Temp Pulse Resp BP Sys/Cole Pulse Ox Last 24 Hr 97.7 F-101.5 F 61-131 17-31 110-199/45-100 90-98 Intake and Output 12/03/19 12/03/19 12/03/19 05:59 13:59 21:59 Intake Total 240 240 54 Output Total 1 1 Balance 239 239 54 Intake & Output: Intake & Output 12/03/19 12/03/19 12/03/19 05:59 13:59 21:59 Intake Total 240 240 54 Output Total 1 1 Balance 239 239 54 Intake: IV 54 Cleocin 600 mg In Dextrose 5% 54 in Water 50 ml @ 100 mls/hr IV Q8H PATEL Rx#:[id number] Oral 240 240 Output: # of times incontinent of urine 1 1 Other: Meal Lunch Percent of Meal Consumed 50% Urine Appearance Clear - Additional findings Additional findings: General: Alert, Awake, No acute Distress Eyes/N/T: EOMI, Head/Neck: neck supple, CV: RRR, No murmurs, Pulm: diminihed at bases and mild b/l rales, no wheezing Abd: soft, nontender, +BS x4 Ext: no clubbing/cyanosis, trace-mild b/l LE edema Neuro: Alert, chronic mild left-sided deficits from previous stroke. Chronic lower extremity sensory deficits secondary to diabetes. subtle right facial droop. Speech clear. Skin: warm/dry Psych: normal Medical - PN: Obj Da - Labs CBC & Chem 7: 12/03/19 04:57 12/03/19 04:57 Labs: Abnormal Lab Results 05/02/1412/03/19 12/02/19 04:57 04:57 19:02 RBC 3.21 L Hgb 9.1 L Hct 28.2 L MPV 11.4 H Carbon Dioxide BUN 25 H Creatinine 1.8 H Glucose 117 H Uric Acid NT-Pro-B Natriuret Pep 4463.0 H Total Protein 5.6 L Globulin Ur Leukocyte Esterase Urine RBC Urine WBC 12/02/19 12/02/19 12/02/19 19:02 19:02 04:25 RBC Hgb 10.5 L Hct 31.9 L MPV 11.1 H Carbon Dioxide 21 L BUN 27 H 31 H Creatinine 1.8 H 1.8 H Glucose 167 H Uric Acid NT-Pro-B Natriuret Pep Total Protein 5.8 L Globulin 2.1 L Ur Leukocyte Esterase Urine RBC Urine WBC 12/01/19 11/30/19 05:13 16:46 RBC Hgb Hct MPV Carbon Dioxide BUN 36 H Creatinine 1.9 H Glucose Uric Acid 8.2 H NT-Pro-B Natriuret Pep Total Protein 5.6 L Globulin Ur Leukocyte Esterase 500 A Urine RBC 2 H Urine WBC 10 H Meds: Medications Acetaminophen (Tylenol) 650 mg PO Q6HP PRN PRN Reason: PAIN/FEVER > 101 Albuterol/Ipratropium (Duoneb) 3 ml NEB Q4HP PRN PRN Reason: Shortness Of Breath Amlodipine Besylate (Norvasc) 5 mg PO DAILY PATEL Apixaban (Eliquis) 5 mg PO BID COUNTS INCLUDE 234 BEDS AT THE [facility] Aspirin (Aspirin) 81 mg PO DAILY PATEL Atorvastatin Calcium (Lipitor) 80 mg PO HS PATEL Ceftriaxone Sodium (Rocephin) 1 gm IV Q24H PATEL; Protocol Dextrose (Dextrose 50%) 0 ml IV UD PRN PRN Reason: Hypoglycemia Diagnostic Test (Pha) (Accu-Chek) 1 each FS ACHS PATEL Last Admin: 12/03/19 12:15 Dose: 1 each Documented by: Docusate Sodium (Colace) 100 mg PO BID PATEL Famotidine (Pepcid) 20 mg PO HS PATEL Felodipine (Plendil Xr) 5 mg PO BID COUNTS INCLUDE 234 BEDS AT THE [facility] Glucose (Insta-Glucose) 15 gm PO PRN PRN PRN Reason: Hypoglycemia Hydralazine HCl (Apresoline) 10 mg IV Q4HP PRN PRN Reason: Hypertension Last Admin: 12/03/19 14:04 Dose: 10 mg Documented by: Clindamycin Phosphate 600 mg/ (Dextrose) 54 mls @ 100 mls/hr IV Q8H COUNTS INCLUDE 234 BEDS AT THE [facility]; Protocol Last Infusion: 12/03/19 14:40 Dose: Infused Documented by: Potassium Chloride 40 meq/ (Dextrose) 520 mls @ 130 mls/hr IV UD PRN PRN Reason: Potassium < 3 Magnesium Sulfate (Magnesium Sulfate) 2 gm in 50 mls @ 50 mls/hr IV UD PRN PRN Reason: Magnesium </= 1.6 Insulin Human Lispro (Humalog) 0 unit SQ ACHS COUNTS INCLUDE 234 BEDS AT THE [facility]; Protocol Last Admin: 12/03/19 12:16 Dose: Not Given Documented by: Labetalol HCl (Trandate) 10 mg IV Q4HP PRN PRN Reason: sbp>185 Metoprolol Tartrate (Lopressor) 5 mg IV Q2HP PRN PRN Reason: Tachyarrhythmias HR>110 Metoprolol Tartrate (Lopressor) 25 mg PO DAILY COUNTS INCLUDE 234 BEDS AT THE [facility] Nitroglycerin (Nitrostat) 0.4 mg SL Q5M PRN PRN Reason: Chest Pain Ondansetron HCl (Zofran) 4 mg IV Q4HP PRN PRN Reason: Nausea And Vomiting Pantoprazole Sodium (Protonix) 40 mg PO HS COUNTS INCLUDE 234 BEDS AT THE [facility] Budesonide/Formoterol Fumarate [Symbicort 160-4.5 Mcg] Inhaler 1 dose INH BID COUNTS INCLUDE 234 BEDS AT THE [facility] Polyethylene Glycol (Miralax) 17 gm PO DAILYP PRN PRN Reason: Constipation Potassium Chloride (Kdur) 40 meq PO UD PRN PRN Reason: Potssium is 3-3.5 Potassium Chloride (Kdur) 40 meq PO UD PRN PRN Reason: Potassium < 3 Senna (Senokot) 2 tab PO DAILYP PRN PRN Reason: Constipation Sodium Chloride (Saline Flush) 10 ml IV Q8 COUNTS INCLUDE 234 BEDS AT THE [facility] Last Admin: 12/03/19 14:11 Dose: 10 ml Documented by: Tramadol HCl (Ultram) 50 mg PO Q8HP PRN PRN Reason: Pain Medical - PN: A/P - Time Spent With Patient Total time spent is greater than 50% in coordination of care (as documented) at patient's floor/unit and/or counseling patient: - Narrative A/P Narrative: Assessment: *Acute CVA, small, Left keating radiata - with mild dysarthria improved and right facial droop (h/o CVA with left deficits): -carotid us >70% in left artery -echo no thrombus, hyperdynamic *Moderate Oropharyngeal Dysphagia: *AFib: on Eliquis *CKD III-IV: baseline ~1.5-2.0 *DM w/neuropathy: *HTN: *Asthma: *GERD: *Cerebral palsy: Wheelchair-bound *UTI (klebsiella) *Cough: from ?aspiration vs ?fluid overload *Pneumonia? Plan: 1. Continue ASA and statin Discussed case with stroke neurologist (Dr. Snider) who recommended switching to another DOAC if insurance allows or just adding aspirin to Eliquis. However, given her degree of CKD we are limited in DOAC options (Edoxaban), other option would be warfarin. *Given the stenosis, will add antiplatelet. Discussed case with Dr. Wagner who would likely stent the left carotid in 4 to 6 weeks after she has recovered. We will continue the patient on Eliquis and have Aspirin added. Eliquis was started yesterday (renal dose) and aspirin started today. 2. completed permissive HTN for 24-48hrs. Metoprolol 25 mg daily,aliskiren 150 mg daily, hydralazine 100 milligrams daily. added amlodipine 5mg daily 3. Chest x-ray showed Mild left lower lobe pneumonia Continue Rocephin and added clindamycin 4. diet per ST 5. prn IH's 6. pt/ot 7. ppx: on eliquis Medical - PN: Qual - Stroke Onset of Symptoms Date: 11/30/19 Onset of Symptoms Time: 10:00 Symptom Onset Unknown: No - VTE Deep Vein Thrombosis/Pulmonary Embolism Present on Admission: No
[2019-12-03] MEDS: ALBUTEROL SULFATE 200 PUFF INHALER INH SCH ×3 (16:13→21:31)
[2019-12-03] MEDS ORDERED: CALCIUM CARBONATE 500 MG TAB.CHEW CHEWED ONE (17:26)
[2019-12-03] MEDS: REPAGLINIDE 1 MG TABLET PO SCH (17:45)
[2019-12-03] MEDS: FAMOTIDINE 20 MG TABLET PO SCH (20:13)
[2019-12-03] MEDS: ATORVASTATIN 40 MG TABLET PO SCH (20:13)
[2019-12-03] MEDS: APIXABAN 2.5 MG TABLET PO SCH (20:14)
[2019-12-03] MEDS: PANTOPRAZOLE 40 MG TABLET PO SCH (20:14)
[2019-12-04] MEDS: hydrALAZINE 20 MG/ML VIAL IV PRN ×2 (01:10→02:03)
[2019-12-04] MEDS: ACETAMINOPHEN 325 MG TABLET PO PRN ×2 (02:04→21:19)
[2019-12-04] MEDS: ALBUTEROL SULFATE 200 PUFF INHALER INH SCH ×6 (02:10→22:42)
[2019-12-04] MEDS: 0.9 % SODIUM CHLORIDE 10 ML SYRINGE IV SCH ×3 (05:29→21:34)
[2019-12-04] MEDS: CLINDAMYCIN 600 MG in DEXTROSE 5% IN WATER 50 ML IV SCH ×3 (05:29→21:34)
[2019-12-04 06:36] LABS: Basophils # (Auto) 0.05 K/mcL (0.00-0.30); Basophils % (Auto) 0.5 % (0.0-2.0); Eosinophils # (Auto) 0.11 K/mcL (0.00-0.70); Eosinophils % (Auto) 1.1 % (0.0-7.0); Granulocytes % (Auto) 72.9 % (38.0-78.0); Hematocrit 27.8 % (34.1-44.9); Hemoglobin 8.8 g/dL (11.2-15.7); Lymphocytes # (Auto) 1.51 K/mcL (1.50-4.80); Lymphocytes % (Auto) 15.3 % (15.5-49.0); Mean Cell Volume 88.3 fL (80.0-100.0); Mean Corpuscular HGB Conc 31.7 g/dL (31.0-36.0); Mean Platelet Volume 11.7 fL (7.4-10.4); Monocytes % (Auto) 10.2 % (1.0-12.0); Platelet Count 157 K/mcL (140-440); RBC 3.15 M/mcL (3.59-5.38); Red Cell Distribution Width 13.5 % (11.5-14.5); WBC 9.9 K/mcL (4.50-11.00)
[2019-12-04 07:06] LABS: ALT/SGPT 16 U/l (0-40); AST/SGOT 18 U/l (0-37); Albumin 3.4 gm/dL (3.2-5.2); Albumin/Globulin Ratio 1.4 (1.0-2.3); Alkaline Phosphatase 53 U/L (39-117); Bilirubin,Total 1.3 mg/dL (0.0-1.0); Blood Urea Nitrogen 30 mg/dl (8-23); Calcium 9.2 mg/dl (8.6-10.4); Carbon Dioxide 24 mmol/L (22-30); Chloride 99 mmol/L (96-108); Globulin 2.4 gm/dL (2.2-3.7); Glomerular Filtration Rate 26; Glucose 116 mg/dL (70-105)
[2019-12-04] MEDS: INSULIN LISPRO 1 UNIT/0.01 ML UNIT SQ SCH ×4 (08:00→21:19)
[2019-12-04] MEDS: CALCIUM CARBONATE 500 MG TAB.CHEW CHEWED SCH ×3 (08:02→16:52)
[2019-12-04] MEDS ORDERED: ASPIRIN 81 MG TAB.CHEW PO SCH (09:00)
--- NOTE | 2019-12-04 10:13 | Cat Scan Report ---
History: Recent stroke with new stroke symptoms developing 90 minutes ago TECHNIQUE: The head was imaged without contrast at 2.5 mm intervals. The radiation exposure was limited using dose reduction technology. FINDINGS: In the white matter lateral to the body of the left lateral ventricle, at the boundary of the frontal and parietal lobes, there is an evolving infarct which measures 1 cm. It has developed low-attenuation but there is no mass effect. At the same level on the right side there is an old lacunar infarct with encephalomalacia which measures 6 x 7 mm. Severe white matter disease is present throughout the frontal and parietal lobes with confluent areas of decreased attenuation. This is a chronic stable finding but potentially could obscure a new infarct. There is no hemorrhage or mass effect. Patient has mild generalized cerebral atrophy, most apparent in the frontal and temporal lobes. The ventricles are normal in size. No abnormal extra-axial fluid collection is present. The patient has mild bilateral ethmoid, left maxillary and right sphenoid sinusitis. IMPRESSION: Stable lacunar infarcts in the keating radiata bilaterally Stable severe white matter ischemia or degeneration. No acute infarct is detected Interpreted and Authenticated by: Erik Cordova 12/04/19
[2019-12-04] MEDS: DOCUSATE SODIUM 100 MG CAPSULE PO SCH ×2 (10:16→21:12)
[2019-12-04] MEDS: APIXABAN 2.5 MG TABLET PO SCH ×2 (10:16→21:11)
[2019-12-04] MEDS: METOPROLOL TARTRATE 25 MG TABLET PO SCH (10:16)
[2019-12-04] MEDS: amLODIPine 5 MG TABLET PO SCH (10:16)
[2019-12-04] MEDS: FELODIPINE XR 5 MG TABLET PO SCH ×2 (10:17→21:11)
[2019-12-04] MEDS: hydrALAZINE 25 MG TABLET PO SCH (10:18)
[2019-12-04] MEDS: cefTRIAXone 1 GM VIAL IV SCH (10:28)
[2019-12-04] MEDS: Budesonide/Formoterol Fumarate [Symbicort 160-4.5 MCG] Inhaler INH SCH ×2 (10:28→21:11)
[2019-12-04] MEDS: ALISKIREN HEMIFUMARATE 150 MG PO SCH (15:03)
[2019-12-04] MEDS: REPAGLINIDE 1 MG TABLET PO SCH ×3 (15:04→16:50)
--- NOTE | 2019-12-04 16:59 | Magnetic Resonance Report ---
History: New stroke symptoms developed a with difficulty closing right eye and swallowing TECHNIQUE: Multiplanar imaging was performed using multiple pulse sequences. FINDINGS: Patient has an acute nonhemorrhagic infarct lateral to the body of the left lateral ventricle within the keating radiata. It measures 11 x 14 mm. This has enlarged two millimeter in AP dimension since prior MRI done on 12/04/19. The restricted diffusion is greater today than it was on the prior exam. No new infarct is developed. There is no evidence of hemorrhage or mass. There is a stable old infarct with encephalomalacia along the posterior border of the right lateral ventricle. Severe white matter ischemia or degeneration is present of the tentorium. There is also a patchy distribution of increased signal in the belly of the francoise. These are chronic stable findings. There is mild generalized atrophy. The ventricles are normal in size allowing for the atrophy. IMPRESSION: Enlarging nonhemorrhagic infarct in the left keating radiata at the boundary of the left frontal and parietal lobes Interpreted and Authenticated by: Erik Cordova 12/04/19
[2019-12-04] MEDS: ATORVASTATIN 40 MG TABLET PO SCH (21:11)
[2019-12-04] MEDS: PANTOPRAZOLE 40 MG TABLET PO SCH (21:11)
[2019-12-04] MEDS: FAMOTIDINE 20 MG TABLET PO SCH (21:11)
--- NOTE | 2019-12-04 21:12 | Internal Med Progress Note ---
Medical - PN: Subj Patient information: Note initiated : 12/04/19 at 8:48 pm Service Date, if different from initiated Date: [] Patient: Alexandria Yee a 79 y/o F admitted on 11/30/19 for stroke symptoms, 90 minutes ago. Chief Complaint: [] Interval history: Ms. Yee is a 79 year old F Who presents the ED with difficulty in speech. Present felt that she had some droopiness in her face. Woke up feeling fine. This all started around 10 where she felt like she was not speaking clearly. She had good comprehension and she felt like she was using the correct words just that she was finding it more difficult to speak clearly. She has bit of a headache. She has chronic shortness of breath but otherwise no new complaints. She has chronic sensory deficits. She does not note any focal weakness from baseline. He is on anticoagulation for atrial fibrillation. Showing a CT which was unremarkable and subsequently an MRI which revealed a small stroke left hemisphere. The imaging was discussed between the ED and radiologist to felt like it was a small peripheral stroke no thrombus. Case was discussed with stroke neurologist patient not a candidate for TPA. I did discuss the case with the stroke neurologist as well regarding her current anticoagulation and he recommended switching her to another DOAC and if that was not feasible given insurance then to add an aspirin. And aspirin now while holding anticoagulation for several days. She was seen in the ED about a month ago at [facility] and at that time was felt to have some CHF and her Lasix was increased from 20-40. Do not know what her baseline creatinine is but she does have chronic kidney disease. Her creatinine at [facility] a month ago was 2.2. The last labs I have are from 2017 and those creatinine labs range from 1/2-1.7. Current creatinine is 1.9. 11/30 No overnight events. Feels her speech is better. However this morning she was eating her breakfast on a dysphagia diet mildly thickened liquids when she drank her thickened coffee she seemed to choke a little on it. Currently n.p.o. and waiting for speech therapy evaluation. Ultrasound with left carotid artery stenosis 75%. Will talk to Dr. Wagner. *Seen by speech therapy and dysphagia diet modified. 12/01 Slept well. Has some coughing this morning and little shortness of breath. no other complaints. Will obtain chest x-ray. 12/02 Patient does not have any new complaints. Blood pressure is not controlled. Restarted home meds hydralazine. Added amlodipine 5 mg daily Heme hemoglobin went down to 9.1 Creatinine 1.8 12/03 Pt's right arm was found to be weaker than yesterday. She was unable to feed herself this morning but was able yesterday. CT of head - negative for acute change. MRI of head showed enlarging nonhemorrhagic infarct. She has a greater than 70% stenosis in the proximal internal carotid from previous study. Based on the results, I wanted to transfer pt to higher level hospital such as [facility]. Before initiated the transfer, I called , Joselito Fabrice. He admitted he is POA. I updated the results to him and discussed the treatment options. declined aggressive treatment. He does not want to transfer pt to another hospital and would like to keep pt here. No am labs. No ICU (just wants to keep pt in the room where she is now in). Most likely he would like to pursue comfort care only/hospice care. I reminded him that I need a decision fabiana because if he would like to pursue an aggressive treatment, I would transfer pt to higher level hospital [facility]. We can not wait for long. will give me a final decision tomorrow. He asked me to call him at 10am tomorrow. Review of Systems: denies headache/fever/chills/nausea/vomiting/chest or abdominal pain/cough/dysp thelma/diarrhea. Otherwise see above. - Constitutional Vitals: Vital Signs Temp Pulse Resp BP Pulse Ox 98.9 F 73 20 123/50 93 12/04/19 19:25 12/04/19 19:25 12/04/19 19:25 12/04/19 19:25 12/04/19 19:42 Period Temp Pulse Resp BP Sys/Cole Pulse Ox Last 24 Hr 98.2 F-100.7 F 66-83 16-20 120-165/50-68 90-97 Intake and Output 12/04/19 12/04/19 12/04/19 05:59 13:59 21:59 Intake Total 414 254 414 Output Total 2 3 4 Balance 412 251 410 Weight 57.017 kg Patient Weight 12/05/19 05:59 Weight 57.017 kg Intake & Output: Intake & Output 12/04/19 12/04/19 12/04/19 05:59 13:59 21:59 Intake Total 414 254 414 Output Total 2 3 4 Balance 412 251 410 Weight 57.017 kg Intake: IV 54 54 54 Cleocin 600 mg In Dextrose 5% 54 54 54 in Water 50 ml @ 100 mls/hr IV Q8H [facility] Rx#:[id number] Oral 360 200 360 Output: # of times incontinent of urine 2 3 4 Other: Meal Lunch Dinner Percent of Meal Consumed 50% 50% Feeding Ability Assist with Tray Set Up Assist with Tray Set Up Stool Size Small Small Small Stool Color Brown Brown Brown Stool Consistency Liquid Liquid Loose Loose # Bowel Movements 1 # of times incontinent of 1 1 1 Bowels - Additional findings Additional findings: General: Alert, Awake, No acute Distress Eyes/N/T: EOMI, Head/Neck: neck supple, CV: RRR, No murmurs, Pulm: diminished at bases and mild b/l rales, no wheezing Abd: soft, nontender, +BS x4 Ext: no clubbing/cyanosis, trace-mild b/l LE edema Neuro: Alert, chronic mild left-sided deficits from previous stroke. Chronic lower extremity sensory deficits secondary to diabetes. subtle right facial dr oop. right arm strength 2-3/5 (weaker than yesterday). Skin: warm/dry Psych: normal Medical - PN: Obj Da - Labs CBC & Chem 7: 12/04/19 05:18 12/04/19 05:18 Labs: Abnormal Lab Results 12/04/19 12/04/19 12/04/19 05:18 05:18 05:18 RBC 3.15 L Hgb 8.8 L Hct 27.8 L MPV 11.7 H Lymph % (Auto) 15.3 L Bell # (Auto) 1.00 H Carbon Dioxide BUN 30 H Creatinine 1.8 H Glucose 116 H Total Bilirubin 1.3 H NT-Pro-B Natriuret Pep 6252.0 H Total Protein 5.8 L Globulin 12/03/19 12/03/19 12/02/19 04:57 04:57 19:02 RBC 3.21 L Hgb 9.1 L Hct 28.2 L MPV 11.4 H Lymph % (Auto) Bell # (Auto) Carbon Dioxide BUN 25 H Creatinine 1.8 H Glucose 117 H Total Bilirubin NT-Pro-B Natriuret Pep 4463.0 H Total Protein 5.6 L Globulin 12/02/19 12/02/19 12/02/19 19:02 19:02 04:25 RBC Hgb 10.5 L Hct 31.9 L MPV 11.1 H Lymph % (Auto) Bell # (Auto) Carbon Dioxide 21 L BUN 27 H 31 H Creatinine 1.8 H 1.8 H Glucose 167 H Total Bilirubin NT-Pro-B Natriuret Pep Total Protein 5.8 L Globulin 2.1 L Meds: Medications Acetaminophen (Tylenol) 650 mg PO Q6HP PRN PRN Reason: PAIN/FEVER > 101 Last Admin: 12/04/19 02:04 Dose: 650 mg Documented by: Albuterol Sulfate (Ventolin) 2 puff INH Q4H [facility] Last Admin: 12/04/19 15:05 Dose: Not Given Documented by: Albuterol/Ipratropium (Duoneb) 3 ml NEB Q4HP PRN PRN Reason: Shortness Of Breath Last Admin: 12/03/19 20:14 Dose: 3 ml Documented by: Amlodipine Besylate (Norvasc) 5 mg PO DAILY [facility] Last Admin: 12/04/19 10:16 Dose: 5 mg Documented by: Apixaban (Eliquis) 2.5 mg PO BID [facility] Last Admin: 12/04/19 10:16 Dose: 2.5 mg Documented by: Aspirin (Aspirin) 81 mg PO DAILY [facility] Last Admin: 12/04/19 10:16 Dose: 81 mg Documented by: Atorvastatin Calcium (Lipitor) 80 mg PO HS [facility] Last Admin: 12/03/19 20:13 Dose: 80 mg Documented by: Calcium Carbonate/Glycine (Tums) 500 mg CHEWED TIDCC [facility] Last Admin: 12/04/19 16:52 Dose: 500 mg Documented by: Ceftriaxone Sodium (Rocephin) 1 gm IV Q24H [facility]; Protocol Last Admin: 12/04/19 10:28 Dose: 1 gm Documented by: Dextrose (Dextrose 50%) 0 ml IV UD PRN PRN Reason: Hypoglycemia Diagnostic Test (Pha) (Accu-Chek) 1 each FS ACHS [facility] Last Admin: 12/04/19 16:49 Dose: 1 each Documented by: Docusate Sodium (Colace) 100 mg PO BID [facility] Last Admin: 12/04/19 10:16 Dose: 100 mg Documented by: Famotidine (Pepcid) 20 mg PO [facility] Last Admin: 12/03/19 20:13 Dose: 20 mg Documented by: Felodipine (Plendil Xr) 5 mg PO BID [facility] Last Admin: 12/04/19 10:17 Dose: 5 mg Documented by: Glucose (Insta-Glucose) 15 gm PO PRN PRN PRN Reason: Hypoglycemia Hydralazine HCl (Apresoline) 10 mg IV Q4HP PRN PRN Reason: Hypertension Last Admin: 12/04/19 02:03 Dose: 10 mg Documented by: Hydralazine HCl (Apresoline) 100 mg PO DAILY [facility] Last Admin: 12/04/19 10:18 Dose: 100 mg Documented by: Clindamycin Phosphate 600 mg/ (Dextrose) 54 mls @ 100 mls/hr IV Q8H [facility]; Protocol Last Infusion: 12/04/19 14:50 Dose: Infused Documented by: Potassium Chloride 40 meq/ (Dextrose) 520 mls @ 130 mls/hr IV UD PRN PRN Reason: Potassium < 3 Magnesium Sulfate (Magnesium Sulfate) 2 gm in 50 mls @ 50 mls/hr IV UD PRN PRN Reason: Magnesium </= 1.6 Insulin Human Lispro (Humalog) 0 unit SQ ACHS [facility]; Protocol Last Admin: 12/04/19 16:49 Dose: Not Given Documented by: Labetalol HCl (Trandate) 10 mg IV Q4HP PRN PRN Reason: sbp>185 Metoprolol Tartrate (Lopressor) 5 mg IV Q2HP PRN PRN Reason: Tachyarrhythmias HR>110 Metoprolol Tartrate (Lopressor) 25 mg PO DAILY [facility] Last Admin: 12/04/19 10:16 Dose: 25 mg Documented by: Nitroglycerin (Nitrostat) 0.4 mg SL Q5M PRN PRN Reason: Chest Pain Ondansetron HCl (Zofran) 4 mg IV Q4HP PRN PRN Reason: Nausea And Vomiting Last Admin: 12/03/19 15:43 Dose: 4 mg Documented by: Pantoprazole Sodium (Protonix) 40 mg PO [facility] Last Admin: 12/03/19 20:14 Dose: 40 mg Documented by: Budesonide/Formoterol Fumarate [Symbicort 160-4.5 Mcg] Inhaler 1 dose INH BID [facility] Last Admin: 12/04/19 10:28 Dose: 1 dose Documented by: Aliskiren Hemifumarate [ Aliskiren] 150 Mg Tablet 1 dose PO DAILY [facility] Last Admin: 12/04/19 15:03 Dose: 1 dose Documented by: Polyethylene Glycol (Miralax) 17 gm PO DAILYP PRN PRN Reason: Constipation Potassium Chloride (Kdur) 40 meq PO UD PRN PRN Reason: Potssium is 3-3.5 Potassium Chloride (Kdur) 40 meq PO UD PRN PRN Reason: Potassium < 3 Repaglinide (Prandin) 2 mg PO ACS [facility] Last Admin: 12/04/19 16:50 Dose: Not Given Documented by: Repaglinide (Prandin) 4 mg PO DAILY@1200 [facility] Last Admin: 12/04/19 15:04 Dose: Not Given Documented by: Senna (Senokot) 2 tab PO DAILYP PRN PRN Reason: Constipation Sodium Chloride (Saline Flush) 10 ml IV Q8 [facility] Last Admin: 12/04/19 14:19 Dose: 10 ml Documented by: Tramadol HCl (Ultram) 50 mg PO Q8HP PRN PRN Reason: Pain Medical - PN: A/P - Time Spent With Patient Total time spent is greater than 50% in coordination of care (as documented) at patient's floor/unit and/or counseling patient: - Narrative A/P Narrative: Assessment: *Acute CVA, small, Left keating radiata - with mild dysarthria improved and right facial droop (h/o CVA with left deficits), new right arm weaker: -carotid us >70% in left artery -echo no thrombus, hyperdynamic -MRI on 12/03: enlarged infarct. *Moderate Oropharyngeal Dysphagia: *AFib: on Eliquis *CKD III-IV: baseline ~1.5-2.0 *DM w/neuropathy: *HTN: *Asthma: *GERD: *Cerebral palsy: Wheelchair-bound *UTI (klebsiella) *Cough: from ?aspiration vs ?fluid overload *Pneumonia? Plan: 1. Continue ASA and statin Discussed case with stroke neurologist (Dr. Snider) who recommended switching to another DOAC if insurance allows or just adding aspirin to Eliquis. However, given her degree of CKD we are limited in DOAC options (Edoxaban), other option would be warfarin. *Given the stenosis, will add antiplatelet. Discussed case with Dr. Wagner who would likely stent the left carotid in 4 to 6 weeks after she has recovered. We will continue the patient on Eliquis and have Aspirin added. Eliquis was restarted on 12/02 (renal dose) and aspirin started today. Pt's right arm was found to be weaker than yesterday. She was unable to feed herself this morning but was able yesterday. CT of head - negative for acute change. MRI of head showed enlarging nonhemorrhagic infarct. She has a greater than 70% stenosis in the proximal internal carotid from previous study. Based on the results, I wanted to transfer pt to higher level hospital such as [facility]. Before initiated the transfer, I called , Fabrice Yee. He admitted he is POA. I updated the results to him and discussed the treatment options. declined aggressive treatment. He does not want to transfer pt to another hospital and would like to keep pt here. No am labs. No ICU (just wants to keep pt in the room where she is now in). Most likely he would like to pursue comfort care only/hospice care. I reminded him that I need a decision fabiana because if he would like to pursue an aggressive treatment, I would transfer pt to higher level hospital [facility]. We can not wait for long. will give me a final decision tomorrow. He asked me to call him at 10am tomorrow. Neurocheck Q2hrs. Discontinued am labs manager monitoring pulse ox oxygen continue aspirin, eliquis and high dose of lipitor Discussed with neurologist Dr. Bonilla at [facility] in [place] who agreed with the current treatment regimen. 2. Metoprolol 25 mg daily,aliskiren 150 mg daily, hydralazine 100 milligrams daily and amlodipine 5mg daily. 3. Chest x-ray showed Mild left lower lobe pneumonia Continue Rocephin and added clindamycin 4. diet per ST 5. prn IH's 6. pt/ot 7. ppx: on eliquis Medical - PN: Qual - Stroke Onset of Symptoms Date: 11/30/19 Onset of Symptoms Time: 10:00 Symptom Onset Unknown: No - VTE Deep Vein Thrombosis/Pulmonary Embolism Present on Admission: No
[2019-12-05] MEDS: ALBUTEROL SULFATE 200 PUFF INHALER INH SCH ×3 (03:00→12:28)
[2019-12-05] MEDS: 0.9 % SODIUM CHLORIDE 10 ML SYRINGE IV SCH (05:26)
[2019-12-05] MEDS: CLINDAMYCIN 600 MG in DEXTROSE 5% IN WATER 50 ML IV SCH (05:26)
[2019-12-05] MEDS ORDERED: ASPIRIN 81 MG TAB.CHEW PO SCH (09:00)
[2019-12-05] MEDS ORDERED: APIXABAN 2.5 MG TABLET PO SCH (09:00)
[2019-12-05] MEDS: INSULIN LISPRO 1 UNIT/0.01 ML UNIT SQ SCH ×2 (09:27→12:28)
[2019-12-05] MEDS: CALCIUM CARBONATE 500 MG TAB.CHEW CHEWED SCH ×2 (09:28→12:28)
[2019-12-05] MEDS: Budesonide/Formoterol Fumarate [Symbicort 160-4.5 MCG] Inhaler INH SCH (09:28)
[2019-12-05] MEDS: DOCUSATE SODIUM 100 MG CAPSULE PO SCH (09:28)
[2019-12-05] MEDS: cefTRIAXone 1 GM VIAL IV SCH (09:29)
--- NOTE | 2019-12-05 10:40 | Discharge Summary ---
Medical - DS: Prov Patient information: Note initiated : 12/05/19 at 10:22 am Service Date, if different from initiated Date: [] Patient: Alexandria Yee a 79 y/o F admitted on 11/30/19 for stroke symptoms, 90 minutes ago. Chief Complaint: [] Refer to H&P by Flaco Dela Cruz on 11/30/19 Ms. Yee is a 79 year old F Who presents the ED with difficulty in speech. Present felt that she had some droopiness in her face. Woke up feeling fine. This all started around 10 where she felt like she was not speaking clearly. She had good comprehension and she felt like she was using the correct words just that she was finding it more difficult to speak clearly. She has bit of a headache. She has chronic shortness of breath but otherwise no new complaints. She has chronic sensory deficits. She does not note any focal weakness from baseline. He is on anticoagulation for atrial fibrillation. Showing a CT which was unremarkable and subsequently an MRI which revealed a small stroke left hemisphere. The imaging was discussed between the ED and radiologist to felt like it was a small peripheral stroke no thrombus. Case was discussed with stroke neurologist patient not a candidate for TPA. I did discuss the case with the stroke neurologist as well regarding her current anticoagulation and he recommended switching her to another DOAC and if that was not feasible given insurance then to add an aspirin. And aspirin now while holding anticoagulation for several days. She was seen in the ED about a month ago at [facility] and at that time was felt to have some CHF and her Lasix was increased from 20-40. Do not know what her baseline creatinine is but she does have chronic kidney disease. Her creatinine at [facility] a month ago was 2.2. The last labs I have are from 2017 and those creatinine labs range from 1/2-1.7. Current creatinine is 1.9. Date of admission: 11/30/19 15:00 Discharge date: 12/05/19 Primary care physician: Jeremy Lares Consults: 11/30/19 Consult to Physician [CONS] Stat Comment: Consulting Provider: Flaco Lam Reason For Exam: Physician to Consult Medical - DS: Meds - Discharge Medications Active and Home Medications: Home Medications budesonide-formoterol HFA 160 mcg-4.5 mcg/actuation aerosol inhaler 2 puff INHALATION BID 10/11/16 [History Confirmed 11/30/19 Last Taken Unknown] felodipine 5 mg tablet,extended release 24 hr 5 mg PO BID 10/11/16 [History Confirmed 11/30/19 Last Taken Unknown] furosemide 20 mg tablet 40 mg PO QAM 10/11/16 [History Confirmed 11/30/19 Last Taken Unknown] hydralazine 100 mg tablet 100 mg PO DAILY 10/11/16 [History Confirmed 11/30/19 Last Taken Unknown] meloxicam 7.5 mg tablet 15 mg PO DAILY 10/11/16 [History Confirmed 11/30/19 Last Taken Unknown] metoprolol tartrate 25 mg tablet 25 mg PO DAILY 10/11/16 [History Confirmed 11/30/19 Last Taken Unknown] omeprazole 20 mg capsule,delayed release 20 mg PO BIDAC 10/11/16 [History Confirmed 11/30/19 Last Taken Unknown] potassium chloride 10 mEq tablet,extended release(part/cryst) 20 meq PO QAMCC 10/11/16 [History Confirmed 11/30/19 Last Taken Unknown] repaglinide 2 mg tablet 4 mg PO QNOON 10/11/16 [History Confirmed 11/30/19 Last Taken Unknown] Albuterol Sulfate [Ventolin] 2 puff INH Q4H 11/30/19 [History Confirmed 11/30/19 Last Taken Unknown] Aliskiren Hemifumarate [Aliskiren] 150 mg PO DAILY 11/30/19 [History Confirmed 11/30/19 Last Taken Unknown] Apixaban [Eliquis] 5 mg PO BID 11/30/19 [History Confirmed 11/30/19 Last Taken Unknown] Repaglinide [Prandin] 2 mg PO ACS 11/30/19 [History Confirmed 11/30/19 Last Taken Unknown] traMADol HCL [Ultram] 50 mg PO TIDP PRN 11/30/19 [History Confirmed 11/30/19 Last Taken Unknown] Medical - DS: Hosp Hospital Course: Interval history: Ms. Yee is a 79 year old F Who presents the ED with difficulty in speech. Present felt that she had some droopiness in her face. Woke up feeling fine. This all started around 10 where she felt like she was not speaking clearly. She had good comprehension and she felt like she was using the correct words just that she was finding it more difficult to speak clearly. She has bit of a headache. She has chronic shortness of breath but otherwise no new complaints. She has chronic sensory deficits. She does not note any focal weakness from baseline. He is on anticoagulation for atrial fibrillation. Showing a CT which was unremarkable and subsequently an MRI which revealed a small stroke left hemisphere. The imaging was discussed between the ED and radiologist to felt like it was a small peripheral stroke no thrombus. Case was discussed with stroke neurologist patient not a candidate for TPA. I did discuss the case with the stroke neurologist as well regarding her current anticoagulation and he recommended switching her to another DOAC and if that was not feasible given insurance then to add an aspirin. And aspirin now while holding anticoagulation for several days. She was seen in the ED about a month ago at [facility] and at that time was felt to have some CHF and her Lasix was increased from 20-40. Do not know what her baseline creatinine is but she does have chronic kidney disease. Her creatinine at [facility] a month ago was 2.2. The last labs I have are from 2017 and those creatinine labs range from 1/2-1.7. Current creatinine is 1.9. *Acute CVA, small, Left keating radiata - with mild dysarthria improved and right facial droop (h/o CVA with left deficits), new right arm weaker: -carotid us >70% in left artery -echo no thrombus, hyperdynamic - MRI on 12/03: enlarged infarct. *Moderate Oropharyngeal Dysphagia: Continue ASA and statin Discussed case with stroke neurologist (Dr. Snider) who recommended switching to another DOAC if insurance allows or just adding aspirin to Eliquis. However, given her degree of CKD we are limited in DOAC options (Edoxaban), other option would be warfarin. *Given the stenosis, will add antiplatelet. Discussed case with Dr. Wagner who would likely stent the left carotid in 4 to 6 weeks after she has recovered. We will continue the patient on Eliquis and have Aspirin added. Yesterday Pt's right arm was found to be weaker than yesterday. She was unable to feed herself yesterday morning but was able on the day before yesterday. CT of head - negative for acute change. MRI of head showed enlarging nonhemorrhagic infarct. Family refused [facility] transfer [facility] Discontinued am labs as per requested by family. medical laboratory assistant pulse ox oxygen continue aspirin, eliquis and high dose of lipitor Discussed with neurologist Dr. Bonilla at [facility] in [place] who agreed with the current treatment regimen. *AFib: on Eliquis *CKD III-IV: baseline ~1.5-2.0 *DM w/neuropathy: *HTN: Metoprolol 25 mg daily,aliskiren 150 mg daily, hydralazine 100 milligrams daily and felodipine 5mg bid. *Asthma: *GERD: *Cerebral palsy: Wheelchair-bound *UTI (klebsiella) *Cough: from ?aspiration vs ?fluid overload *Pneumonia? Chest x-ray showed Mild left lower lobe pneumonia Continue Rocephin and added clindamycin 11/30 No overnight events. Feels her speech is better. However this morning she was eating her breakfast on a dysphagia diet mildly thickened liquids when she drank her thickened coffee she seemed to choke a little on it. Currently n.p.o. and waiting for speech therapy evaluation. Ultrasound with left carotid artery stenosis 75%. Will talk to Dr. Wagner. *Seen by speech therapy and dysphagia diet modified. 12/01 Slept well. Has some coughing this morning and little shortness of breath. no other complaints. Will obtain chest x-ray. 12/02 Patient does not have any new complaints. Blood pressure is not controlled. Restarted home meds hydralazine. Added amlodipine 5 mg daily Heme hemoglobin went down to 9.1 Creatinine 1.8 12/03 Pt's right arm was found to be weaker than yesterday. She was unable to feed herself this morning but was able yesterday. CT of head - negative for acute change. MRI of head showed enlarging nonhemorrhagic infarct. She has a greater than 70% stenosis in the proximal internal carotid from previous study. Based on the results, I wanted to transfer pt to higher level hospital such as [facility]. Before initiated the transfer, I called , Fabrice Yee. He admitted he is POA. I updated the results to him and discussed the treatment options. declined aggressive treatment. He does not want to transfer pt to another hospital and would like to keep pt here. No am labs. No ICU (just wants to keep pt in the room where she is now in). Most likely he would like to pursue comfort care only/hospice care. I reminded him that I need a decision fabiana because if he would like to pursue an aggressive treatment, I would transfer pt to higher level hospital fabiana. We can not wait for long. will give me a final decision tomorrow. He asked me to call him at 10am tomorrow. 12/04 Today she is fine. Does not have new complaints. Denies headache, dizziness, chest pain, shortness of breath, fever, chills, nausea, vomiting, dysuria, or changes in vision. Vital signs are stable. No morning labs today SANTOS Hare and I spoke to by phone at about 10:10am this morning. has decided to bring her home at 1pm today. He can take care of her and two daughters will stay with them for 1 week to help him to take care of her. He wo uld like to continue current treatment. I advised him that pt needs to f/u with pcp, neurology and Dr. Wagner. Home health with PT/OT/ST will be arranged on Saturday (today is Saturday). Questions were answered. Call pcp for medical issues. Talked to pt who is happy to go home and with the discharge and f/u plan. Discharge diagnosis: Acute CVA - Time Spent with Patient Total time spent providing and/or coordinating discharge services: Greater than 30 minutes Medical - DS: Exam - Constitutional Vitals: Vital Signs Temp Pulse Resp BP BP Pulse Ox 12/05/19 08:00 98.2 F 64 14 112/57 97 12/05/19 02:52 93 12/05/19 02:50 98.2 F 79 20 102/44 88 L 12/04/19 23:05 99.0 F 71 20 120/57 97 12/04/19 22:46 93 12/04/19 19:42 93 12/04/19 19:25 98.9 F 73 20 123/50 93 12/04/19 16:00 98.5 F 68 18 120/60 90 12/04/19 12:00 98.2 F 66 18 154/68 95 Intake and Output 12/04/19 12/05/19 12/05/19 21:59 05:59 13:59 Intake Total 414 154 54 Output Total 4 2 550 Balance 410 152 -496 Intake: IV 54 54 54 Cleocin 600 mg In Dextrose 5% 54 54 54 in Water 50 ml @ 100 mls/hr IV Q8H [facility], [facility]–1983 Rx#:[id number] Oral 360 100 Output: Urine Catheter Amount 550 # of times incontinent of urine 4 2 Other: Meal Dinner Percent of Meal Consumed 50% Feeding Ability Assist with Tray Set Up Stool Size Small Small Stool Color Brown Brown Stool Consistency Loose Loose # Bowel Movements 1 # of times incontinent of 1 1 Bowels Weight 57.243 kg - Other Additional findings: General: Alert, Awake, No acute Distress Eyes/N/T: EOMI, Head/Neck: neck supple, CV: RRR, No murmurs, Pulm: diminished at bases and mild b/l rales, no wheezing Abd: soft, nontender, +BS x4 Ext: no clubbing/cyanosis, trace-mild b/l LE edema Neuro: Alert, chronic mild left-sided deficits from previous stroke. Chronic lower extremity sensory deficits secondary to diabetes. subtle right facial droop. right arm strength 2-3/5 (weaker than yesterday) (seems to improving). Skin: warm/dry Psych: normal Medical - DS: A/P - Patient/Caregiver Discharge Instructions Activity: increase activity as tolerated Diet: Consistent Carbohydrate, Dysphagia Level 6 Soft & Bite-Sized Foods - Follow up Plan Follow up with: Jeremy Lares MD [Primary Care Provider] - (in 3 days) Neurology [Other] (in one week or sooner) Dr. Wagner [Other] (in 4 weeks. ) Disposition: Home Health Service Care Plan Goals: This discharge packet is provided to you to help keep you informed about your care. We want to ensure you get everything you need when you go home. You will also be receiving a call from us in a few days to follow up with you and see how you are doing since your discharge. This gives us a chance to listen to any concerns you maybe experiencing since you were discharged or any additional needs you may have, as well as providing us feedback on your care experience. We strive to always provide excellent care and thank you for your feedback and for choosing [facility]. Prognosis: Serious Rehab Potential: Undetermined Medical - DS: Qual - VTE Deep Vein Thrombosis/Pulmonary Embolism Present on Admission: No
[2019-12-05] MEDS: ALISKIREN HEMIFUMARATE 150 MG PO SCH (10:46)
[2019-12-05] MEDS: FELODIPINE XR 5 MG TABLET PO SCH (10:46)
[2019-12-05] MEDS: hydrALAZINE 25 MG TABLET PO SCH (10:46)
[2019-12-05] MEDS: METOPROLOL TARTRATE 25 MG TABLET PO SCH (10:46)
[2019-12-05] MEDS: amLODIPine 5 MG TABLET PO SCH (11:21)
[2019-12-05] MEDS: REPAGLINIDE 1 MG TABLET PO SCH (12:29)
== END 2019-12-05 13:06 | disposition home health service (06) | DRG 64 ==
LOC: ED 11:36 → ICU 15:00 → MEDSUR 12-03 13:06
PROVIDERS: ADMIT Internal Medicine; ATTEND Internal Medicine